=== PATIENT | female | born 1975 | race Caucasian/White ===

== ENCOUNTER → 2018-06-25 12:59 | Outpatient (REF) | payer SELFPAY ==
--- NOTE | 2018-06-25 08:45 | PAPFT_PTH ---
PATIENT: Lady Carlin LOC: [facility] U#:[id number] AGE/SX: 49/F ROOM: RE06/25/[address]: FOX Darling : 1975 BED: DIS: SPEC #: [id number] RECD: 06/25/18 13:05 STATUS: BRIAN REOsmin #: [id number] OSEI: 06/25/18 08:[address]: Jaclyn Martinez DEPT: [facility] Cytology RECD BY: Yulia Ayala Tissues: 1 - CX/ENDOCX FOR PAP SMEARS Procedures: PAP THIN PREP/UVM Screening HPV DNA PROBE Comments: [id number]
== END ==
LOC: LBN 12:59
PROVIDERS: PCP Nurse Practitioner Family; Visit Provider Nurse Practitioner Family
DX: Z12.4 Encounter for screening for malignant neoplasm of cervix (principal); Z11.51 Encounter for screening for human papillomavirus (HPV)
CPT/HCPCS: 88142; 87624

== ENCOUNTER 2018-10-14 00:49 | Outpatient (CLI) | payer MEDICAID, SELFPAY ==
--- NOTE | 2018-10-14 10:13 | DI.COMBO_ITS ---
SYMPTOM/DIAGNOSIS: LT BREAST LUMP, ,N63, FAMILY H/O BREAST CA LEFT MAMMOGRAM AND LEFT BREAST ULTRASOUND: Mammograms were interpreted according to the usual protocol including computer analysis with CAD system, tomosynthesis and C view imaging. Routine images and compression CC and mediolateral spot films of the left breast reveal ill defined radiodensity in the upper outer quadrant of the breast. Analysis of the tomograms suggests the possibility of architectural distortion. No calcifications are identified. At ultrasound, no discrete mass is demonstrated. SUMMARY: A region of abnormality in the upper outer quadrant of the left breast appears to represent architectural distortion. The possibility of a malignancy could not be excluded on the basis of the present images and further evaluation with a biopsy is recommended. Category 4. MQSA ASSESSMENT OF FINDINGS: Suspicious. Biopsy should be considered. Category 4. Patient will receive a letter notifying them of these results. Bi-RADS category C. The breasts are heterogeneously dense, which may obscure small masses.
== END 2018-10-14 01:09 ==
PROVIDERS: PCP Nurse Practitioner Family; Visit Provider Nurse Practitioner Family
DX: N63.21 Unspecified lump in the left breast, upper outer quadrant (principal); Z80.3 Family history of malignant neoplasm of breast
CPT/HCPCS: 76642; 77061; 77065; G0279

== ENCOUNTER 2018-11-14 15:34 | Emergency (ER) | payer MEDICAID, SELFPAY ==
[2018-11-14 15:38] VITALS: BP 133/87; PULSE 78; RESP 16; TEMP 36.5; O2SAT 99
--- NOTE | 2018-11-14 16:32 | ED.GENADUL_ITS ---
Discharge Plan Disposition Patient Disposition: HOME Condition: Stable Discharge Details Chief Complaint: RespSymp Clinical Impression: Influenza A, Cigarette smoker Primary Care Provider: Jaclyn Martinez ED Provider: Jens Silverman Home Meds and New Rx's Prescriptions: New benzonatate 200 mg capsule 200 mg PO TID PRN (Reason: cough) Qty: 30 RF: 0 oseltamivir [Tamiflu] 75 mg capsule 75 mg PO BID 5 Days Qty: 10 RF: 0 No Action triamcinolone acetonide 80 GM ointment 2 - 4 gm Topical BID PRNQty: 1 RF: 2 Discharge Instructions Instructions: Influenza (ED) Additional Instructions: Please take your medication as prescribed and for the full 5 days. Return to the emergency department immediately for any new or significant worsening of symptoms otherwise follow-up with your primary care provider for reassessment. Stay well-hydrated and get plenty of rest during illness Stand Alone Forms: Work Release Referrals: Jaclyn Martinez, [facility] REPA[facility] [Primary Care Provider] - (As needed for reassessment) Medical Decision Making Patient presenting the emergency department for flulike illness. Patient states symptoms started yesterday evening. Physical exam consistent with influenza and rapid testing shows positive influenza. Patient has no signs of secondary pneumonia, meningitis, and does not appear toxic at this time but does show signs of acute illness. Did discuss risk versus benefit of Tamiflu treatment and patient agreed upon treatment plan to include Tamiflu, albuterol inhaler due to slight wheezing, and Tessalon Perles for cough suppressant. Patient encouraged to return for new or worsening signs or symptoms or to follow-up with primary care as needed for reassessment. After discussion of diagnosis and plan of care patient has no further needs, questions, or concerns and states clear understanding to return to the emergency department for any worsening symptoms. HPI General Mode of arrival: ambulatory . Date/Time Provider Initiated Documentation: 11/14/18 15:43 . Limitations to Documentation: no limitations . Information obtained by: patient . History of Present Illness 42 year old F presents to the emergency department with the chief complaint of flu-like symptoms, described as moderate, with intensity rated at 8. Quality is described as constant, and is localized to the face (sinus pressure). Patient started experiencing this day(s) (1) and it has been constant. No relieving factors improve symptom(s), No exacerbating factors reported . Patient did receive the following treatments prior to arrival, NSAID Related Data Home Medications Medication Instructions Recorded Confirmed triamcinolone acetonide 2 - 4 gm TOPICAL BID PRN #1 gm 05/27/18 11/14/18 benzonatate 200 mg PO TID PRN #30 cap 11/14/18 oseltamivir [Tamiflu] 75 mg PO BID 5 Days #10 cap 11/14/18 Previous Rx's Medication Instructions Recorded benzonatate 200 mg PO TID PRN #30 cap 11/14/18 oseltamivir [Tamiflu] 75 mg PO BID 5 Days #10 cap 11/14/18 Allergies Allergy/AdvReac Type Severity Reaction Status Date / Time No Known Drug Allergies Allergy Unverified 11/14/18 15:38 cat dander AdvReac Intermediate itchy Unverified 11/14/18 15:38 watery eyes General Stated Complaint: RespSymp CHERY: 4 Review of Systems Constitutional Reports chills, Reports fatigue, Reports fever(s) and Reports malaise ENT Reports otalgia, Reports hoarseness, Reports nasal congestion, Reports sinus pressure and Reports throat swelling Cardiovascular Denies chest pain and Denies dyspnea Respiratory Denies chest congestion, Reports cough, Denies excessive phlegm production and Denies dyspnea Gastrointestinal Denies abdominal pain, Denies diarrhea, Denies nausea and Denies vomiting Musculoskeletal Reports myalgias and Denies joint swelling Integumentary/Breasts Denies rash Endocrine Reports fatigue Allergic/Immunologic Reports throat swelling [facility] Medical History Atopic dermatitis (Chronic 05/25/18) Bulimia nervosa (Inactive 06/25/18) Bulimia nervosa Depression Surgical History Appendectomy (~2007) Cervical Conization/LEEP section MOLE REMOVAL Tonsillectomy and adenoidectomy (~1996) Family History Mother Essential hypertension Depression Breast cancer Father Diabetes A-fib Sister Psoriasis Sister Substance abuse Alcohol abuse Bipolar disorder Depression Heart disease Grandfather Alcohol abuse Grandfather Stomach cancer Grandmother Emphysema lung COPD (chronic obstructive pulmonary disease) Asthma Grandmother Dementia Son No problems noted. Son No problems noted. Daughter No problems noted. 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 pets and animals: Yes pets and animals: dog(s) and farm animals frequency: does not exercise Smoking/Tobacco Use Status: Current every day tobacco type: cigarettes alcohol intake: current alcohol intake frequency: a few times a week substance use type: does not use omari/shinto: Gnosticist Exam Const General: cooperative, comfortable and no acute distress Orientation: alert, awake and oriented x3 HENMT Head: normal to inspection Ears: hearing grossly normal bilaterally, external ears normal and TM's normal bilaterally Face and sinus: normal facial exam and sinuses nontender Mouth: oral mucosae normal, lip normal and tongue normal Throat: posterior oropharynx normal, tonsils normal and uvula midline Eyes General: appearance normal, both eyes and all related structures Conjunctivae: conjunctivae normal Sclera: sclerae normal Neck Neck: normal visual inspection, full ROM, no lymphadenopathy, meningismus present and no JVD Resp Effort & Inspection: normal respiratory effort, able to speak in complete sentences, no audible wheezes, cough Quality of cough: actively coughing and not labored Auscultation: wheezes expiratory wheezes (Very mild throughout lung garcia) Cardio Rate: regular rate Rhythm: regular rhythm Heart Sounds: S1 normal and S2 normal Skin General skin exam: no rashes or lesions noted and dry skin Rashes: no rashes Neuro General: alert, awake, oriented x3 and gait normal Course Vital Signs Temperature 36.5 C 11/14/18 15:38 Pulse 78 11/14/18 15:38 Respiratory Rate 16 11/14/18 15:38 Blood Pressure 133/87 11/14/18 15:38 Pulse Oximetry 99 11/14/18 15:38 Temperature 36.5 C 11/14/18 15:38 Temperature Source Temporal Artery Scan 11/14/18 15:38 Pulse 78 11/14/18 15:38 Respiratory Rate 16 11/14/18 15:38 Respiratory Effort Non-Labored 11/14/18 15:50 Respiratory Depth Normal 11/14/18 15:50 Blood Pressure 133/87 11/14/18 15:38 Blood Pressure Position Sitting 11/14/18 15:38 Pulse Oximetry 99 11/14/18 15:38 Oxygen Delivery Method Room Air 11/14/18 15:38 Oxygen Flow Rate 0 11/14/18 15:38 Lab/Test Results Lab/Test Results: 11/14/18 15:41 Nasopharynx Influenza Types A,B Antigen - Final
[2018-11-14] MEDS: Albuterol HFA 8 GM 60 PUFF INH IH (16:45)
[2018-11-14] MEDS: Inhaler, Assist Device 1 EACH MC (16:46)
== END 2018-11-14 16:55 | disposition home or self-care (01) ==
PROVIDERS: Emergency Provider Nurse Practitioner Family; PCP Nurse Practitioner Family
DX: J10.1 Influenza due to other identified influenza virus with other respiratory manifestations (principal); F17.210 Nicotine dependence, cigarettes, uncomplicated
CPT/HCPCS: 81025; 87449; 99283

== ENCOUNTER 2018-12-23 15:20 | Outpatient (CLI) | payer MEDICAID, SELFPAY ==
[2018-12-23 16:23] LABS: Anion Gap 9.3 mmol/L (3-11); BUN 10 mg/dL (7-18); CO2 27.7 mmol/L (21.0-32.0); CREATININE 0.96 mg/dL (0.55-1.02); Calcium 8.6 mg/dL (8.5-10.1); Chloride 104 mmol/L (98-107); Cholesterol 155 mg/dL (50-200); Glucose 91 mg/dL (70-100); HDL Cholesterol 64 mg/dL (40-60); LDL CHOLESTEROL 67 mg/dL (<100); Sodium 141 mmol/L (136-145); Triglyceride 133 mg/dL (30-150)
== END 2018-12-23 15:40 ==
PROVIDERS: PCP Nurse Practitioner Family; Visit Provider Nurse Practitioner Family
DX: Z00.00 Encounter for general adult medical examination without abnormal findings (principal); Z13.220 Encounter for screening for lipoid disorders; Z13.228 Encounter for screening for other metabolic disorders
CPT/HCPCS: 36415; 80048; 80061; 83721

== ENCOUNTER 2018-12-25 00:28 | Outpatient (CLI) | payer MEDICAID, SELFPAY ==
--- NOTE | 2018-12-25 09:45 | DI.MRI_ITS ---
SYMPTOM/DIAGNOSIS: RT SHOULDER PAIN WITH DECREASE RANGE OF MOTION, INJURY, S49.91XA RIGHT SHOULDER MRI: No plain films are available for comparison. Proton density and fat suppressed T 2 axial and coronal and T 1 and fat suppressed T 2 sagittal sequences were performed. A small amount of fluid is seen in the subacromial subdeltoid bursa which could indicate bursitis. There may be slight impingement by the distal clavicle and the distal supraspinatus muscle. There is minimal increased signal in the supraspinatus tendon, consistent with tendinosis. No focal tear is seen. The infraspinatus, subscapular, teres minor and biceps tendons are unremarkable. There is no joint effusion. There is a minimal amount of fluid in the subcoracoid region. There are small subchondral cysts in the humeral head. No gross labral defects are seen. IMPRESSION: Supraspinatus tendinosis. Question of mild supraspinatus impingement and bursitis.
== END 2018-12-25 00:48 ==
PROVIDERS: PCP Nurse Practitioner Family; Visit Provider Nurse Practitioner Family
DX: M25.511 Pain in right shoulder (principal); M75.81 Other shoulder lesions, right shoulder; M25.811 Other specified joint disorders, right shoulder
CPT/HCPCS: 73221

== ENCOUNTER 2019-06-09 11:35 | Emergency (ER) | payer MEDICAID, SELFPAY ==
[2019-06-09 11:52] VITALS: BP 124/79; PULSE 72; RESP 14; TEMP 36.9; O2SAT 98
--- NOTE | 2019-06-09 12:05 | ED.GENADUL_ITS ---
Discharge Plan Disposition Patient Disposition: HOME Condition: Fair Discharge Details Chief Complaint: Orthopedic Clinical Impression: Closed fracture of tuft of distal phalanx of finger Primary Care Provider: Jaclyn Martinez ED Provider: Darleen Arce Home Meds and New Rx's Prescriptions: Continued triamcinolone acetonide 80 GM ointment 2 - 4 gm Topical BID PRNQty: 1 RF: 2 Discharge Instructions Instructions: Finger Fracture (ED) Additional Instructions: Encourage rest, ice, elevation. Tylenol and/or Ibuprofen as needed for discomfort. You will need follow up with orthopedics, please call to schedule appointment. If you develop fevers/chills, increased pain, or other new/worsening symptoms please seek care urgently once again. Continue with brace until evaluated by orthopedics. Referrals: Alhaji Villela MD [ [facility] STAFF PHYSICIAN] - Discharge Data Discharge Date/Time-TO BE ENTERED AT DEPARTURE: 06/09/19 12:37 Medical Decision Making Patient is a 43-year-old luzdo-crqb-nyzvomrr female presents today with chief complaint of pain to the left index finger. She reports that she suffered a crush injury yesterday. Since that time is noted increased pain, swelling and ecchymosis. On exam, she has notable swelling and ecchymosis circumferentially about the left index finger. This is worse over the DIP and distal phalanx. She does have a thick nail on. I do not see any opening of the skin. Does have blood blistering on the palmar side of the digit. Good capillary refill. Sensation remains intact. Plan for imaging. Patient declines any analgesics at this time. X-ray reviewed by myself and radiologist, notable for fracture at the top of the distal phalanx. Discussed these findings with the patient. Encourage rest, ice, elevation. Tylenol and/or ibuprofen as needed for discomfort. Patient will be fitted with a foam and metal splint, will follow-up with orthopedics. We discussed activities that she should avoid. She is given strict return precautions. All her questions and concerns were addressed and she is in agreement with this plan. HPI General Mode of arrival: ambulatory . Date/Time Provider Initiated Documentation: 06/09/19 12:04 . Limitations to Documentation: no limitations . Information obtained by: patient and RN notes reviewed . HPI Narrative: Patient is a 43-year-old [id number]-fyraihss female presenting today with chief complaint of right index finger pain. She reports that last night, while using a wood splinter, she caught her finger between the wood in the abutting his equipment. States that since that time she has had swelling, particular to the distal aspect of the finger. Has been using ibuprofen with good relief. Denies any fevers or chills. Denies other injury the time of the incident. Patient is currently menstruating. Related Data Home Medications Medication Instructions Recorded Confirmed triamcinolone acetonide 2 - 4 gm TOPICAL BID PRN #1 gm 05/27/18 06/09/19 Allergies Allergy/AdvReac Type Severity Reaction Status Date / Time No Known Drug Allergies Allergy Verified 06/09/19 12:02 cat dander AdvReac Intermediate itchy Verified 06/09/19 12:02 watery eyes General Stated Complaint: Orthopedic CHERY: 4 Review of Systems Constitutional Reports as per HPI, Denies chills, Denies fever(s), Denies headache(s) and Denies weakness ENT Denies headache(s) Cardiovascular Reports as per HPI Respiratory Reports as per HPI and Denies cough Musculoskeletal Reports as per HPI and Denies tingling Integumentary/Breasts Reports as per HPI, Denies rash and Denies wounds Neurologic Reports as per HPI, Denies headache(s), Denies tingling, Denies paresthesias and Denies weakness [facility] Medical History Atopic dermatitis (Chronic 05/25/18) Bulimia nervosa Bulimia nervosa (Inactive 06/25/18) Depression Surgical History Appendectomy (~2007) Cervical Conization/LEEP section MOLE REMOVAL Tonsillectomy and adenoidectomy (~1996) Social History Smoking/Tobacco Use Status: Current every day Tobacco Type: cigarettes Alcohol Intake: current Alcohol Intake frequency: a few times a week Drug use: Never Substance use type: does not use Household members: other Details: 5 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 Pets and animals: Yes Pets and animals: dog(s) and farm animals Frequency: does not exercise Leyla/Presybeterian: Restorationism Do you feel safe at home: Yes Do you feel safe in your relationship?: Yes Exam Const General: cooperative, healthy appearing, comfortable, no acute distress, well developed and well groomed Nutritional Appearance: average body habitus and well nourished Orientation: alert and awake Resp Effort & Inspection: normal respiratory effort, able to speak in complete sentences and no respiratory distress Cardio Rate: regular rate Rhythm: regular rhythm Skin General skin exam: ecchymosis (Circumferential left index finger) Neuro General: alert and awake Cognition: normal cognition Speech: speech normal Gait: normal gait Motor: muscle tone normal throughout Sensory Exam: no sensory deficits noted Extrem Left upper extremity: normal capillary refill, wrist Details: normal to ins pection and normal ROM; no tenderness and no swelling and hand Details: normal capillary refill, neuromotor exam normal, neurosensory exam normal, tenderness Location: of the 2nd digit Location: at the middle phalanx, at the distal phalanx, at the nailbed and involving the fingernail, vascular exam Details: radial pulse present and normal capillary refill, swelling Location: of the 2nd digit Location: involving the entire digit and ecchymosis; abnormal to inspection, tendon exam abnormal (Secondary to swelling and pain, this is unable to be assessed), ROM of fingers abnormal, no unusual warmth, no abrasions, no lacerations and no crepitus; abnormal to inspection (Circumferential swelling and ecchymosis index finger) and ROM limited (Unable to range left index finger) Psych Appearance: grossly normal and well kempt Mental Status: mental status grossly normal Speech and Movement: speech and movement normal Course Vital Signs Temperature 36.9 C 06/09/19 11:52 Pulse 72 06/09/19 11:52 Respiratory Rate 06/09/19 11:52 Blood Pressure 124/79 06/09/19 11:52 Pulse Oximetry 98 06/09/19 11:52 Temperature 36.9 C 06/09/19 11:52 Temperature Source Skin 06/09/19 11:52 Pulse 72 06/09/19 11:52 Respiratory Rate 06/09/19 11:52 Respiratory Effort 06/09/19 12:00 Blood Pressure 124/79 06/09/19 11:52 Blood Pressure Position Sitting 06/09/19 11:52 Pulse Oximetry 98 06/09/19 11:52 Oxygen Delivery Method Room Air 06/09/19 11:52 Oxygen Flow Rate 0 06/09/19 11:52 Pain Level 10 06/09/19 11:59
--- NOTE | 2019-06-09 12:09 | DI.RAD_ITS ---
SYMPTOMS/DIAGNOSIS: CRUSH LEFT INDEX FINGER: There is a small fragment fracture from the tuft of the distal phalanx, which is not significantly displaced. No additional fractures are seen. IMPRESSION: Fracture of the tuft of the distal phalanx.
== END 2019-06-09 12:37 | disposition home or self-care (01) ==
PROVIDERS: Emergency Provider Physician Assistant; PCP Nurse Practitioner Family
DX: S67.191A Crushing injury of left index finger, initial encounter (principal); S62.631A Displaced fracture of distal phalanx of left index finger, initial encounter for closed fracture; W23.0XXA Caught, crushed, jammed, or pinched between moving objects, initial encounter; W31.2XXA Contact with powered woodworking and forming machines, initial encounter
CPT/HCPCS: 26750; 73140

== ENCOUNTER 2020-05-22 14:45 | Emergency (ER) | payer MEDICAID, SELFPAY ==
[2020-05-22 14:56] VITALS: BP 136/88; PULSE 88; RESP 22; TEMP 37.1; O2SAT 97
--- NOTE | 2020-05-22 15:00 | DI.RAD_ITS ---
EXAM: XR FINGER LT INDEX CLINICAL HISTORY: Crush injury. TECHNIQUE: 2D digital imaging was performed. COMPARISON: None. FINDINGS: There is a nondisplaced fracture at the tuft of the distal phalanx of the index finger. There is sof t tissue swelling of the index finger. There is no foreign body or dislocation. IMPRESSION: Nondisplaced tuft fracture. DATA REPOSITORY: RADIATION DOSE DELIVERED:
--- NOTE | 2020-05-22 15:56 | ED.GENADUL_ITS ---
Discharge Plan Disposition Patient Disposition: HOME Condition: Good Discharge Details Chief Complaint: Orthopedic Clinical Impression: Fracture of distal phalanx of left index finger, Crush injury, Laceration Primary Care Provider: Jaclyn Martinez ED Provider: Darleen Arce Home Meds and New Rx's Prescriptions: New cephalexin [Keflex] 500 mg capsule 500 mg PO QID Qty: 20 RF: 0 Continued hydroxyzine HCl 25 mg tablet 25 mg PO TID Qty: 30 RF: 0 doxycycline hyclate 100 mg tablet 100 mg PO DAILY Qty: 60 RF: 0 Discharge Instructions Instructions: Laceration (ED), Finger Fracture (ED) Additional Instructions: Keep wound clean, dry, covered. Tylenol and/or ibuprofen as needed for discomfort. Keep current dressing on until tomorrow. After that time, please change, cover with dressing in place splint. You will need follow-up with orthopedics. Please call tomorrow morning to schedule appointment, number listed below. Please take the antibiotics as prescribed. If you develop fever/chills, increased pain, discharge or other new/worsening symptoms please seek care urgently once again Referrals: Jaclyn Martinez NP [Primary Care Provider] - Alhaji Villela MD [ [facility] STAFF PHYSICIAN] - Discharge Data Discharge Date/Time-TO BE ENTERED AT DEPARTURE: 05/22/20 17:36 Medical Decision Making Patient is a 44-year-old female presenting today with chief complaint of left index finger crush injury. She reports that this happened prior to arrival when she was using a wood splitter. She has endorsing tingling. Notes large amount of swelling. Denies other injury the time the incident. Rates the pain an 8 out of 10. X-ray viewed by radiologist: FINDINGS: There is a nondisplaced fracture at the tuft of the distal phalanx of the index finger. There is soft tissue swelling of the index finger. There is no foreign body or dislocation. IMPRESSION: Nondisplaced tuft fracture. On exam, patient appears uncomfortable. She has circumferential swelling of the entire digit. She does have some ecchymosis along the palmar side. Y-shaped laceration totaling 3 cm over the flexor surface of the DIP joint. Brisk capillary refill. Sensation is intact on the radial side, limited on the ulnar side. Nail appears normal. She has intact ligamentous exam. Exam of the MCP and PIP joints are in tact without abnormality. She also has a small area of superficial skin displacement on the dorsal side of the DIP joint. Patient is actively bleeding. She and I discussed risk/benefits as well as expected procedural steps associated with digital block and closure. She was understan ding wished to proceed. Please see procedure note. Patient tolerated procedure well. This was per formed using standard sterile technique. A tourniquet was used for visualization. Wound is explored to base in a bloodless field. No foreign body or debris was noted. Ligament and bone appear intact and the area able to be visualized. Wound edges reapproximated well and #4 simple interrupted stitches were placed. Patient I discussed wound care in depth. We discussed care of the stitches. She will follow-up with orthopedics regarding the distal tuft fracture. As this is potentially an open fracture, will begin the patient on Keflex. She is given her first dosing here. Give Tylenol and ibuprofen. Encourage rest, ice, elevation. Should continue with Tylenol and/or ibuprofen as needed for discomfort. Return precautions were discussed, particular signs of infection. All of her questions and concerns were addressed she is agreement this plan. HPI General Mode of arrival: ambulatory . Date/Time Provider Initiated Documentation: 05/22/20 14:58 . Limitations to Documentation: no limitations . Information obtained by: patient and RN notes reviewed . History of Present Illness 44 year old F presents to the emergency department with the chief complaint of crush injury left index finger, described as severe, with intensity rated at 8. Quality is described as crushing, and is localized to the left and upper extremity. Patient reports no radiation. Patient started experiencing this minute(s) and it has been constant. Immobilization improves symptom(s), Movement worsens symptoms . Patient notes no other symptoms.. Patient did receive the following treatments prior to arrival, none Related Data Home Medications Medication Instructions Recorded Confirmed hydroxyzine HCl 25 mg tablet 25 mg PO TID #30 tab 07/06/19 05/22/20 doxycycline hyclate 100 mg tablet 100 mg PO DAILY #60 tab 07/30/19 05/22/20 cephalexin [Keflex] 500 mg PO QID #20 cap 05/22/20 Previous Rx's Medication Instructions Recorded hydroxyzine HCl 25 mg tablet 25 mg PO TID #30 tab 07/06/19 doxycycline hyclate 100 mg tablet 100 mg PO DAILY #60 tab 07/30/19 cephalexin [Keflex] 500 mg PO QID #20 cap 05/22/20 Allergies Allergy/AdvReac Type Severity Reaction Status Date / Time doxycycline Allergy Intermediate hives Unverified 05/22/20 15:03 cat dander AdvReac Intermediate itchy Verified 05/22/20 15:03 watery eyes General Stated Complaint: Orthopedic CHERY: 3 Review of Systems Constitutional Constitutional: Reports as per HPI, Denies chills, Denies fever(s), Denies h eadache(s) and Denies weakness ENT Ears, Nose, Mouth, and Throat: Denies headache(s) Cardiovascular Cardiovascular: Reports as per HPI Respiratory Respiratory: Reports as per HPI and Denies cough Musculoskeletal Musculoskeletal: Reports as per HPI and Reports tingling Integumentary/Breasts Skin/Breast: Reports as per HPI and Reports wounds Neurologic Neurologic: Reports as per HPI, Denies headache(s), Reports tingling and Denies weakness [facility] Surgical History H/O section (Chronic ~2001) x 2 S/P appendectomy (Acute ~2007) S/P LEEP of cervix (Acute ~1997) S/P tonsillectomy and adenoidectomy (Acute) Social History Smoking/Tobacco Use Status: Current every day Tobacco Type: cigarettes Tobacco: How many years used: 15 Quit status: considering quitting Second Hand Exposure: No Alcohol Intake: current Alcohol Intake frequency: 0-2 drinks per day Alcohol type: beer Drug use: Never Substance use type: does not use Caregiver/Support person: No Household members: significant other and children Communication Needs: None Do you need help understanding health information?: Never 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 Pets and animals: Yes Pets and animals: dog(s) and farm animals Sexually active: Yes Do you think of yourself as: straight/heterosexual Current gender identity: female What is your relationship status?: living with partner How often do you talk on the phone with friends or family?: three or more times per week How often do you get together with friends or relatives?: once per week How often do you attend confucianist or congregational services?: decline to answer Do you belong to any clubs or organized social groups?: no Panel score (0-1 are the most socially isolated patients): 2 What type of physical activity do you participate in: other Details: Gym Duration: 45-60 minutes/day Frequency: decline to answer Leyla/Confucianist: Denominational Special leyla needs: No Seatbelt use: always Helmet use: Yes Helmet use: always Drive intox or ride w/intox otr flatbed company truck driver: No Do you feel safe at home: Yes Do you feel safe in your relationship?: Yes Female Reproductive History Menstrual control method: natural family planning History History 4 Para 3 Hx # Term Pregnancies Multiple births Hx # Pregnancies Ectopic pregnancies AB induced 1 Hx Number of Living Children 3 AB spontaneous Exam Const General: cooperative, healthy appearing, uncomfortable (patient appears uncomfo rtable), no acute distress, well developed and well groomed Nutritional Appearance: average body habitus and well nourished Orientation: alert and awake Resp Effort & Inspection: normal respiratory effort, able to speak in complete sentences and no respiratory distress Cardio Rate: regular rate Rhythm: regular rhythm Skin Trauma: laceration (as below) Neuro General: patient alert and patient awake Cognition: normal cognition Speech: speech normal Gait: normal gait Motor: muscle tone normal throughout Sensory Exam: no sensory deficits noted Extrem Hand/finger images: 1. Irregularly shaped Y laceration. Sensation intact along the radial side, limited on the ulnar side. Brisk capillary refill. flexion and extension intact against resistance. Dorsal side has superifical lifting off of skin, similar appearance to a ruptured blister with no deep involvement or laceration. Entire finger is swollen circumfrencially. ROM limited secondary to swelling but able to flex/extend at MCP, DIP and PIP Psych Appearance: grossly normal and well kempt Mental Status: mental status grossly normal Speech and Movement: speech and movement normal Course Vital Signs Vital signs: Vital Signs Temperature 37.1 C 05/22/20 14:56 Pulse 88 05/22/20 14:56 Respiratory Rate 22 05/22/20 14:56 Blood Pressure 136/88 05/22/20 14:56 Pulse Oximetry 97 05/22/20 14:56 Temperature 37.1 C 05/22/20 14:56 Temperature Source Temporal Artery Scan 05/22/20 14:56 Pulse 88 05/22/20 14:56 Respiratory Rate 22 05/22/20 14:56 Respiratory Effort 05/22/20 14:59 Blood Pressure 136/88 05/22/20 14:56 Pulse Oximetry 97 05/22/20 14:56 Oxygen Delivery Method Room Air 05/22/20 14:56 Oxygen Flow Rate 0 05/22/20 14:56 Pain Level 8 05/22/20 14:56 Procedures Laceration Laceration 1: Site: hand Side (If applicable): left Size (cm): 3 Description: irregular Depth: simple, single layer Local Anesthetic: Lidocaine 1% Amount of anesthesia used (mL): 5 Pre-repair: wound explored, irrigated extensively, deep structures intact and wound margins revised Skin layer closed with: nylon Size (cm): 5-0 Number of sutures: 4
[2020-05-22] MEDS: Cephalexin 500 MG CAP PO ×2 (16:56)
[2020-05-22] MEDS: Ibuprofen 600 MG TAB PO (16:56)
[2020-05-22] MEDS: Acetaminophen 500 MG TAB 1000 MG PO (16:56)
[2020-05-22 16:58] VITALS: BP 123/73; PULSE 72; RESP 20; TEMP 36.1; O2SAT 98
== END 2020-05-22 17:36 | disposition home or self-care (01) ==
PROVIDERS: Emergency Provider Physician Assistant; PCP Nurse Practitioner Family
DX: S67.191A Crushing injury of left index finger, initial encounter (principal); S62.661B Nondisplaced fracture of distal phalanx of left index finger, initial encounter for open fracture; W23.1XXA Caught, crushed, jammed, or pinched between stationary objects, initial encounter
CPT/HCPCS: 12002; 26750; 73140

== ENCOUNTER 2020-05-29 13:38 | Emergency (ER) | payer MEDICAID, SELFPAY ==
[2020-05-29 13:43] VITALS: BP 119/91; PULSE 79; RESP 16; TEMP 36.7; O2SAT 98
--- NOTE | 2020-05-29 13:52 | ED.GENADUL_ITS ---
Discharge Plan Disposition Patient Disposition: HOME Condition: Stable Discharge Details Chief Complaint: SutureRem Clinical Impression: Visit for suture removal Primary Care Provider: Jaclyn Martinez ED Provider: Rachel Quintanilla Home Meds and New Rx's Prescriptions: No Action No Known Home Meds RF: 0 Discharge Instructions Instructions: Stitches Removal (ED) Additional Instructions: Keep wound clean and dry. Cover wound with bandage if risk of contamination. Otherwise you can keep the wound open to air if resting at home to allow edges to dry and heal. Follow up with your primary care doctor in 1 week as needed. Return to the emergency department with any worsening or new concerning symptoms. Discharge Data Discharge Physician: Rachel Quintanilla Medical Decision Making 44-year-old female presents for suture removal after 4 nylon sutures placed 1 week ago. No signs of cellulitis. There is minimal edema which is restricting full flexion otherwise no focal deficits noted. She is neurovascular intact. 4 sutures removed by nurse and Steri-Strip placed at 1 area which appeared slightly open and then covered with bandage. Patient has a follow-up appointment with Dr. Villela next week. Usual and customary return precautions given prior to discharge. HPI General Mode of arrival: ambulatory . Date/Time Provider Initiated Documentation: 05/29/20 13:46 . Limitations to Documentation: no limitations . Information obtained by: patient . HPI Narrative: Patient is a 44-year-old female presents for suture removal of her left second finger after 4 nylon sutures placed 1 week ago. She also sustained a finger fracture at that time. She finished taking the Keflex. She denies any fever. She does admit to still having some swelling in the finger which limits her range of motion but otherwise denies any acute symptoms. Related Data Home Medications Medication Instructions Recorded Confirmed Unknown [No Known Home Meds] 05/29/20 05/29/20 Allergies Allergy/AdvReac Type Severity Reaction Status Date / Time doxycycline Allergy Intermediate hives Unverified 05/29/20 13:48 shrimp Allergy Skin Rash Unverified 05/29/20 13:52 cat dander AdvReac Intermediate itchy Verified 05/29/20 13:48 watery eyes General Stated Complaint: SutureRem CHERY: 5 Review of Systems All systems reviewed & are unremarkable except as noted in HPI and below [facility] Medical History (Updated 05/29/20 @ 13:53 by Rachel Quintanilla, ) Atopic dermatitis (Chronic) Bulimia nervosa (Inactive) Cigarette smoker (Chronic) Depressive disorder (Inactive) Surgical History H/O section (Chronic ~2001) x 2 S/P appendectomy (Acute ~2007) S/P LEEP of cervix (Acute ~1997) S/P tonsillectomy and adenoidectomy (Acute) Family History Mother Depression Breast cancer Hypertension Father Type 2 diabetes mellitus Atrial fibrillation Sister Psoriasis Alcohol abuse Asthma Substance abuse Sister Type 2 diabetes mellitus Son No problems noted. Son No problems noted. Daughter No problems noted. Maternal Grandfather Alcohol abuse Maternal Grandmother Asthma COPD (chronic obstructive pulmonary disease) Paternal Grandfather Stomach cancer Paternal Grandmother Dementia Social History Smoking/Tobacco Use Status: Current every day Tobacco Type: cigarettes Tobacco: How many years used: 15 Quit status: considering quitting Second Hand Exposure: No Alcohol Intake: current Alcohol Intake frequency: 0-2 drinks per day Alcohol type: beer Drug use: Never Substance use type: does not use Caregiver/Support person: No Household members: significant other and children Communication Needs: None Do you need help understanding health information?: Never 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 Pets and animals: Yes Pets and animals: dog(s) and farm animals Sexually active: Yes Do you think of yourself as: straight/heterosexual Current gender identity: female What is your relationship status?: living with partner How often do you talk on the phone with friends or family?: three or more times per week How often do you get together with friends or relatives?: once per week How often do you attend yazidism or gnosticist services?: decline to answer Do you belong to any clubs or organized social groups?: no Panel score (0-1 are the most socially isolated patients): 2 What type of physical activity do you participate in: other Details: Gym Duration: 45-60 minutes/day Frequency: decline to answer Leyla/Amish: Episcopalian Special leyla needs: No Seatbelt use: always Helmet use: Yes Helmet use: always Drive intox or ride w/intox cpr ambulance driver: No Do you feel safe at home: Yes Do you feel safe in your relationship?: Yes Female Reproductive History Menstrual control method: natural family planning History History 4 Para 3 Hx # Term Pregnancies Multiple births Hx # Pregnancies Ectopic pregnancies AB induced 1 Hx Number of Living Children 3 AB spontaneous Exam Const General: cooperative, healthy appearing and no acute distress HENMT Head: normal to inspection Mouth: oral mucosae normal Eyes General: appearance normal, both eyes and all related structures Neck Neck: normal visual inspection Resp Effort & Inspection: normal respiratory effort and able to speak in complete se ntences Cardio Rate: regular rate Skin General skin exam: no rashes or lesions noted Neuro General: patient alert, patient awake and patient oriented x3 Motor: muscle tone normal throughout Other: Normal muscle strength noted to left second finger. There is some limitation of full flexion due to edema of distal left second finger. Extrem Hand/finger images: 1. [address] noted in place at wound site. Minimal edema noted around distal finger and wound site. There is no erythema, ecchymosis, drainage or bleeding. Psych Appearance: grossly normal Affect: normal affect Course Vital Signs Vital signs: Vital Signs Temperature 98.1 F 05/29/20 13:43 Pulse 79 05/29/20 13:43 Respiratory Rate 16 05/29/20 13:43 Blood Pressure 119/91 H 05/29/20 13:43 Pulse Oximetry 98 05/29/20 13:43 Temperature 98.1 F 05/29/20 13:43 Temperature Source Tympanic 05/29/20 13:43 Pulse 79 05/29/20 13:43 Respiratory Rate 16 05/29/20 13:43 Blood Pressure 119/91 H 05/29/20 13:43 Blood Pressure Position Sitting 05/29/20 13:43 Pulse Oximetry 98 05/29/20 13:43 Oxygen Delivery Method Room Air 05/29/20 13:43 Oxygen Flow Rate 0 05/29/20 13:43
== END 2020-05-29 14:05 | disposition home or self-care (01) ==
PROVIDERS: Emergency Provider Physician Assistant; PCP Nurse Practitioner Family
DX: S62.661D Nondisplaced fracture of distal phalanx of left index finger, subsequent encounter for fracture with routine healing (principal); W23.1XXD Caught, crushed, jammed, or pinched between stationary objects, subsequent encounter; Z48.02 Encounter for removal of sutures

== ENCOUNTER 2020-11-15 04:20 | Outpatient (CLI) | payer MEDICAID, SELFPAY ==
[2020-11-15 11:30] LABS: HCT 44.6 % (36.0-46.0); HGB 14.5 g/dL (11.2-15.7); MCH 31.7 pg (27.0-33.0); MCHC 32.5 % (32.0-36.0); MCV 97.6 fL (80-95); MPV 8.9 fL (8.0-11.0); Platelet Count 311 10^3/uL (130-400); RBC 4.57 10^6/uL (3.93-5.22); RDW 11.9 % (11.7-14.6); RDW-SD 42.6 fL; WBC 8.38 10^3/uL (4.4-10.8)
[2020-11-15 12:05] LABS: ESR 6 mm/hr (0-20)
[2020-11-15 12:39] LABS: ALT 18 U/L (14-59); AST 15 U/L (15-37); Albumin 3.8 g/dL (3.4-5.0); Alkaline Phosphatase 51 U/L (46-116); Anion Gap 7.6 mmol/L (3-11); BUN 10 mg/dL (7-18); Bilirubin, Total 0.5 mg/dL (0.2-1.0); CO2 26.4 mmol/L (21.0-32.0); CREATININE 1.05 mg/dL (0.55-1.02); Calcium 9.1 mg/dL (8.5-10.1); Chloride 104 mmol/L (98-107); Estimated GFR 57.47 (mL/min/1.73m2); Glucose 88 mg/dL (74-106); Potassium 4.1 mmol/L (3.5-5.1); Sodium 138 mmol/L (136-145)
[2020-11-15 12:40] LABS: C-Reactive Protein < 0.05 mg/dL (0.0-0.3)
== END 2020-11-15 04:40 ==
PROVIDERS: PCP Nurse Practitioner Family; Visit Provider Nurse Practitioner Family
DX: M25.511 Pain in right shoulder (principal); M25.512 Pain in left shoulder
CPT/HCPCS: 36415; 80053; 85027; 85652; 86140

== ENCOUNTER 2021-01-31 20:18 | Emergency (ER) | payer MEDICAID, SELFPAY ==
[2021-01-31 20:20] VITALS: BP 115/74; PULSE 91; RESP 16; TEMP 36.7; O2SAT 96
--- NOTE | 2021-01-31 22:05 | ED.GENADUL_ITS ---
Discharge Plan Disposition Patient Disposition: HOME Condition: Improving Discharge Details Clinical Impression: Acute effusion of right ear, TMJ click Primary Care Provider: Jaclyn Martinez ED Provider: Alhaji Rendon Home Meds and New Rx's Prescriptions: New prednisone 50 mg tablet 50 mg PO DAILY 5 Days Qty: 5 RF: 0 loratadine [Allerclear] 10 mg tablet 10 mg PO DAILY Qty: 7 RF: 0 Continued albuterol sulfate [Proventil HFA] 90 mcg/actuation HFA aerosol inhaler 2 puff inhalation Q6H PRN (Reason: shortness of breath or wheezing) Qty: 6.7 RF: 0 hydroxyzine HCl 25 mg tablet 25 mg PO Q6H PRN (Reason: itching) Qty: 60 RF: 0 triamcinolone acetonide 0.1 % cream 1 applic TP BID PRN (Reason: atopic dermatitis) Qty: 80 RF: 1 Discharge Instructions Instructions: Ear Infection (ED) Additional Instructions: Home to rest today. Take prednisone as prescribed. Please take Claritin for 7 days as prescribed. Return if you develop a fever, increasing discomfort, or any other acute concerns. As we discussed, you may have TMJ (temporal mandibular joint) irritation or mild arthralgia. If your symptoms do not improve with the burst of prednisone, please follow-up with your regular doctor for recheck. Medical Decision Making 45-year-old female presents with right ear pain over weeks time, sensation of fullness, and clicking of the right jaw as well as ear. Its worse when lying on that side. She is not had a fever. No change to voice. Denies stress or teeth grinding. Vital signs are unremarkable. She is afebrile. Her exam reveals both right TMJ tenderness as well as right middle ear effusion. Discussed with her that this may be TMJ pain, but also others significant consideration of aggressively treating the middle ear effusion to eliminate this as a source of her discomfort. I do not feel she has signs or symptoms of sinusitis. No evidence of dental infection. We will start the patient on a burst of prednisone. She will take Claritin for 1 week. She understands that she may have persistent TMJ discomfort that will need further follow-up. HPI General Mode of arrival: ambulatory . Date/Time Provider Initiated Documentation: 01/31/21 20:33 . Limitations to Documentation: no limitations . Information obtained by: patient . History of Present Illness 45 year old F presents to the emergency department with the chief complaint of Right ear fullness and jaw pain, described as mild, Quality is described as dull, and is localized to the head, face and right. Patient reports no radiation. Patient started experiencing this day(s) and it has been intermittent. No relieving factors improve symptom(s), No exacerbating factors reported . Patient notes denies cough, fever/chills, headaches and nausea/vomiting. Patient did receive the following treatments prior to arrival, none Related Data Home Medications Medication Instructions Recorded Confirmed hydroxyzine HCl 25 mg tablet 25 mg PO Q6H PRN #60 tab 07/07/20 11/13/20 albuterol sulfate 90 mcg/actuation 2 puff INHALATION Q6H PRN #6.7 g 07/21/20 11/13/20 aerosol inhaler triamcinolone acetonide 0.1 % 1 applic TP BID PRN #80 gm 11/10/20 11/13/20 topical cream loratadine [Allerclear] 10 mg PO DAILY #7 tab 01/31/21 prednisone 50 mg PO DAILY 5 Days #5 tab 01/31/21 Previous Rx's Medication Instructions Recorded hydroxyzine HCl 25 mg tablet 25 mg PO Q6H PRN #60 tab 07/07/20 albuterol sulfate 90 mcg/actuation 2 puff INHALATION Q6H PRN #6.7 g 07/21/20 aerosol inhaler triamcinolone acetonide 0.1 % 1 applic TP BID PRN #80 gm 11/10/20 topical cream loratadine [Allerclear] 10 mg PO DAILY #7 tab 01/31/21 prednisone 50 mg PO DAILY 5 Days #5 tab 01/31/21 Allergies Allergy/AdvReac Type Severity Reaction Status Date / Time doxycycline Allergy Intermediate hives Unverified 11/13/20 12:02 shrimp Allergy Skin Rash Unverified 11/13/20 12:02 cat dander AdvReac Intermediate itchy Verified 11/13/20 12:02 watery eyes General Stated Complaint: FacialProb CHERY: 4 Review of Systems Narrative: No swelling, no fever, no drooling, no change to voice. No sore throat. 6 systems reviewed and otherwise negative [facility] Medical History (Updated 01/31/21 @ 22:11 by Alhaji Rendon MD) Atopic dermatitis Bulimia nervosa Cigarette smoker Depressive disorder Surgical History H/O section (~2001) x 2 S/P appendectomy (~2007) S/P LEEP of cervix (~1997) S/P tonsillectomy and adenoidectomy Family History Mother Depression Breast cancer Hypertension Father Type 2 diabetes mellitus Atrial fibrillation Sister Psoriasis Alcohol abuse Asthma Substance abuse Rheumatoid arthritis Sister Type 2 diabetes mellitus Rheumatoid arthritis Son No problems noted. Son No problems noted. Daughter No problems noted. Maternal Grandfather Alcohol abuse Maternal Grandmother Asthma COPD (chronic obstructive pulmonary disease) Paternal Grandfather Stomach cancer Paternal Grandmother Dementia Social History Smoking/Tobacco Use Status: Current every day (On/off 20 years) Tobacco Type: cigarettes Tobacco: How many years used: 20 Quit status: considering quitting Second Hand Exposure: No Smoking risk assessment performed?: Yes Alcohol Intake: current Alcohol Intake frequency: a few times a week Alcohol type: beer Drug use: Never Caregiver/Support person: No Household members: spouse Housing: house Communication Needs: None Do you need help understanding health information?: Never 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 Pets and animals: Yes Pets and animals: dog(s), ferret(s) and farm animals Sexually active: Yes Do you think of yourself as: straight/heterosexual Current gender identity: female What is your relationship status?: living with partner How often do you talk on the phone with friends or family?: once per week How often do you get together with friends or relatives?: once per week How often do you attend temple or jainism services?: 1-3 times per year Do you belong to any clubs or organized social groups?: no Panel score (0-1 are the most socially isolated patients): 1 What type of physical activity do you participate in: other Details: Gym Duration: 15-30 minutes/day Frequency: 3-4 times per week Leyla/Presybeterian: Roman Catholic Special leyla needs: No Seatbelt use: always Helmet use: Yes Helmet use: always Drive intox or ride w/intox otr flatbed company truck driver: No Do you feel safe at home: Yes Do you feel safe in your relationship?: Yes Female Reproductive History Menstrual control method: natural family planning History History 4 Para 3 Hx # Term Pregnancies Multiple births Hx # Pregnancies Ectopic pregnancies AB induced 1 Hx Number of Living Children 3 AB spontaneous Exam Narrative Exam Narrative: GEN: awake, alert, oriented 3. Pleasant, well groomed, interactive. HEAD: Normocephalic, atraumatic ENT: Mucous membranes moist, oropharynx unremarkable, right tympanic membrane slightly distended, fluid-filled, no erythema, external ear exam unremarkable. Tenderness right TMJ with movement. EYES: PERRL, EOMI NECK: Full ROM, no KATIANA, no menigismus CHEST/RESP: Nontender, clear to auscultation bilateral, no wheeze/rhonchi/rales CARDIOVASCULAR: RRR, no murmur, rub heidi. 2+ Rad pulse bilateral EXT: Full ROM, no edema, no rash Neuro: Grossly normal neurologic exam, conversant, interactive. Psych: Speech fluent, thoughts congruent, affect normal Course Vital Signs Vital signs: Vital Signs Temperature 36.7 C 01/31/21 20:20 Pulse 91 H 01/31/21 20:20 Respiratory Rate 16 01/31/21 20:20 Blood Pressure 115/74 01/31/21 20:20 Pulse Oximetry 96 01/31/21 20:20 Temperature 36.7 C 01/31/21 20:20 Temperature Source Oral 01/31/21 20:20 Pulse 91 H 01/31/21 20:20 Respiratory Rate 16 01/31/21 20:20 Blood Pressure 115/74 01/31/21 20:20 Blood Pressure Position Sitting 01/31/21 20:20 Pulse Oximetry 96 01/31/21 20:20 Oxygen Delivery Method Room Air 01/31/21 20:20 Oxygen Flow Rate 0 01/31/21 20:20 Pain Level 8 01/31/21 20:20
[2021-01-31] MEDS: predniSONE 20 MG TAB 60 MG PO (22:22)
[2021-01-31 22:23] VITALS: BP 118/76; PULSE 80; RESP 16; TEMP 36.7; O2SAT 96
== END 2021-01-31 22:24 | disposition home or self-care (01) ==
PROVIDERS: Emergency Provider Emergency Medicine; PCP Nurse Practitioner Family
DX: H65.191 Other acute nonsuppurative otitis media, right ear (principal); M26.69 Other specified disorders of temporomandibular joint
CPT/HCPCS: 99283; J7512

== ENCOUNTER 2021-09-29 23:43 | Emergency (ER) | payer MEDICAID, SELFPAY ==
[2021-09-29 23:50] VITALS: BP 141/90; PULSE 75; RESP 16; TEMP 36.5; O2SAT 95
--- NOTE | 2021-09-29 23:55 | ED.GENADUL_ITS ---
Discharge Plan Disposition Patient Disposition: HOME Condition: Stable Discharge Details Clinical Impression: Sinusitis, Bilateral acute otitis media Primary Care Provider: Jaclyn Martinez ED Provider: Daysi Telles Home Meds and New Rx's Prescriptions: New amoxicillin-pot clavulanate [Augmentin] 875-125 mg tablet 1 tab PO BID 10 Days Qty: 20 RF: 0 No Action albuterol sulfate [Proventil HFA] 90 mcg/actuation HFA aerosol inhaler 2 puff inhalation Q6H PRN (Reason: shortness of breath or wheezing) Qty: 6.7 RF: 0 buspirone 10 mg tablet 10 mg PO BID PRN (Reason: anxiety) Qty: 90 RF: 4 triamcinolone acetonide 0.1 % cream 1 applic TP BID PRN (Reason: atopic dermatitis) Qty: 80 RF: 1 fluticasone propionate [Flonase] 50 mcg/actuation [place],Suspension INTRANASAL RF: 0 Discharge Instructions Instructions: Sinusitis (ED), Ear Infection (ED) Additional Instructions: Take the antibiotic twice daily as prescribed. Eat yogurt or take a probiotic while taking the antibiotic. Continue to use the Flonase for the next few weeks. You may try an ishs-zhs-qviidhe decongestant if this seems to help. Please take Tylenol or Ibuprofen with food every 4-6 hours as needed for pain and swelling. Follow up with primary care provider in 3-5 days. Return to ED sooner if any worsening or concerns. Increase oral fluids. Referrals: Jaclyn Martinez, [employer]PERATOR [Primary Care Provider] - 5 days Medical Decision Making 45-year-old female presents to the ER with chief complaint of bilateral ears feeling plugged, maxillary sinus pressure, yellow discharge from the nose and scratchy and sore throat for the last 4 weeks. Patient reports that she got a flu shot and since then has been having the symptoms. She did have a negative Covid test today. She reports using Flonase and bqes-dpi-utfwtkh [place] cold and sinus with little to no relief. She denies any fever. She has a past medical history of anxiety disorder, she is a daily smoker. Due to the length of symptoms for baseline [address] patient on Augmentin twice daily. Will instruct Flonase next few weeks. Instructed patient to follow-up with PCP. This text was generated using [employer] dictation system, please disregard any oddities of phrase or misspellings. HPI General Mode of arrival: ambulatory . Date/Time Provider Initiated Documentation: 09/29/21 23:44 . Limitations to Documentation: no limitations . Information obtained by: patient and RN notes reviewed . HPI Narrative: 45-year-old female presents to the ER with chief complaint of bilateral ears feeling plugged, maxillary sinus pressure, yellow discharge from the nose and scratchy and sore throat for the last 4 weeks. Patient reports that she got a flu shot and since then has been having the symptoms. She did have a negative Covid test today. She reports using Flonase and qwfe-eih-tnqyuvt [place] cold and sinus with little to no relief. She denies any fever. She has a past medical history of anxiety disorder, she is a daily smoker. Related Data Home Medications Medication Instructions Recorded Confirmed triamcinolone acetonide 0.1 % 1 applic TP BID PRN #80 gm 11/10/20 09/29/21 topical cream albuterol sulfate 90 mcg/actuation 2 puff INHALATION Q6H PRN #6.7 g 06/15/21 aerosol inhaler buspirone 10 mg tablet 10 mg PO BID PRN #90 tab 08/30/21 09/29/21 fluticasone propionate [Flonase] INTRANASAL 09/29/21 amoxicillin-pot clavulanate 1 tab PO BID 10 Days #20 tab 09/30/21 [Augmentin] Previous Rx's Medication Instructions Recorded triamcinolone acetonide 0.1 % 1 applic TP BID PRN #80 gm 11/10/20 topical cream albuterol sulfate 90 mcg/actuation 2 puff INHALATION Q6H PRN #6.7 g 06/15/21 aerosol inhaler buspirone 10 mg tablet 10 mg PO BID PRN #90 tab 08/30/21 amoxicillin-pot clavulanate 1 tab PO BID 10 Days #20 tab 09/30/21 [Augmentin] Allergies Allergy/AdvReac Type Severity Reaction Status Date / Time doxycycline Allergy Intermediate hives Verified 09/29/21 23:54 shrimp Allergy Skin Rash Verified 09/29/21 23:54 cat dander AdvReac Intermediate itchy Verified 09/29/21 23:54 watery eyes General Stated Complaint: RespSymp CHERY: 4 Review of Systems All systems reviewed & are unremarkable except as noted in HPI and below ENT Ears, Nose, Mouth, and Throat: Reports otalgia, Reports facial pain, Reports hearing loss, Reports hoarseness, Reports nasal discharge and Reports sinus pressure Cardiovascular Cardiovascular: Denies chest pain and Denies dyspnea Respiratory Respiratory: Reports change in phlegm color, Reports cough and Denies dyspnea Gastrointestinal Gastrointestinal: Denies diarrhea, Denies nausea and Denies vomiting [facility] Active Problem List Generalized anxiety disorder (Chronic) Cigarette smoker (Chronic) Atopic dermatitis (Chronic) Medical History Bulimia nervosa Depressive disorder Surgical History H/O section (~2001) x 2 S/P appendectomy (~2007) S/P LEEP of cervix (~1997) S/P tonsillectomy and adenoidectomy Family History Mother Depression Breast cancer Hypertension Father Type 2 diabetes mellitus Atrial fibrillation Sister Psoriasis Alcohol abuse Asthma Substance abuse Rheumatoid arthritis Sister Type 2 diabetes mellitus Rheumatoid arthritis Son No problems noted. Son No problems noted. Daughter No problems noted. Maternal Grandfather Alcohol abuse Maternal Grandmother Asthma COPD (chronic obstructive pulmonary disease) Paternal Grandfather Stomach cancer Paternal Grandmother Dementia Social History Smoking/Tobacco Use Status: Current every day Tobacco Type: cigarettes Tobacco: How many years used: 20 Quit status: considering quitting Second Hand Exposure: Yes Smoking risk assessment performed?: Yes Alcohol Intake: current Alcohol Intake frequency: a few times a week Alcohol type: beer Drug use: Never Caregiver/Support person: No Household members: spouse and children Housing: house Communication Needs: None Do you need help understanding health information?: Never 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 Pets and animals: Yes Pets and animals: dog(s), ferret(s) and farm animals Sexually active: Yes Do you think of yourself as: straight/heterosexual Current gender identity: female What is your relationship status?: living with partner How often do you talk on the phone with friends or family?: three or more times per week How often do you get together with friends or relatives?: once per week How often do you attend cheondoism or confucianism services?: 1-3 times per year Do you belong to any clubs or organized social groups?: no Panel score (0-1 are the most socially isolated patients): 2 What type of physical activity do you participate in: walking Duration: 45-60 minutes/day Frequency: 3-4 times per week Leyla/Worship: Pentecostalism Special leyla needs: No Seatbelt use: always Helmet use: Yes Helmet use: always Drive intox or ride w/intox commercial driver: No Do you feel safe at home: Yes Do you feel safe in your relationship?: Yes Female Reproductive History Menstrual control method: natural family planning History History 4 Para 3 Hx # Term Pregnancies Multiple births Hx # Pregnancies Ectopic pregnancies AB induced 1 Hx Number of Living Children 3 AB spontaneous Exam HENMT Head: normal to inspection Ears: mastoids normal and TM abnormal (Bilaterally) bulging and erythematous General nose exam: mucous membranes and turbinates abnormal boggy bilaterally Teeth and gingiva: dentition normal Throat: posterior oropharynx abnormal erythema; no cobblstoning and no exudates Resp Effort & Inspection: normal respiratory effort and able to speak in complete sentences Auscultation: clear to auscultation bilaterally Cardio Heart Sounds: S1 normal and S2 normal Course Vital Signs Vital signs: Vital Signs Temperature 36.5 C 09/29/21 23:50 Pulse 75 09/29/21 23:50 Respiratory Rate 16 09/29/21 23:50 Blood Pressure 141/90 H 09/29/21 23:50 Pulse Oximetry 95 09/29/21 23:50 Temperature 36.5 C 09/29/21 23:50 Temperature Source Oral 09/29/21 23:50 Pulse 75 09/29/21 23:50 Respiratory Rate 16 09/29/21 23:50 Blood Pressure 141/90 H 09/29/21 23:50 Blood Pressure Position Sitting 09/29/21 23:50 Pulse Oximetry 95 09/29/21 23:50 Oxygen Delivery Method Room Air 09/29/21 23:50 Oxygen Flow Rate 0 09/29/21 23:50
[2021-09-30] MEDS: Amoxicillin 875/Clav. 125 TAB PO (00:13)
[2021-09-30] MEDS: Amox. 875/Clav. 125, 2 TABS/BTL 1 TAB PO (00:14)
== END 2021-09-30 00:24 | disposition home or self-care (01) ==
PROVIDERS: Emergency Provider Registered Nurse Emergency; PCP Nurse Practitioner Family
DX: J01.90 Acute sinusitis, unspecified (principal); H66.93 Otitis media, unspecified, bilateral; J02.9 Acute pharyngitis, unspecified
CPT/HCPCS: 99283

== ENCOUNTER 2022-09-09 09:54 | Emergency (ER) | payer MEDICAID, SELFPAY ==
[2022-09-09 10:05] VITALS: BP 121/69; PULSE 77; RESP 20; TEMP 37; O2SAT 97
--- NOTE | 2022-09-09 10:21 | W.ED.GENAD ---
Discharge Plan Disposition Patient Disposition: HOME Discharge Details Chief Complaint: Orthopedic Clinical Impression: Right shoulder strain, Muscle spasm Primary Care Provider: Jaclyn Martinez ED Provider: Darleen Arce Home Meds and New Rx's Prescriptions: New methocarbamol 750 mg tablet 750 mg PO QHS PRN (Reason: muscle spasm) Qty: 7 0RF Continued albuterol sulfate [Proventil HFA] 90 mcg/actuation HFA aerosol inhaler 2 puff inhalation Q6H PRN (Reason: shortness of breath or wheezing) Qty: 6.7 0RF buspirone 10 mg tablet 10 mg PO BID PRN (Reason: anxiety) Qty: 90 4RF triamcinolone acetonide 0.1 % cream 1 applic TP BID PRN (Reason: atopic dermatitis) Qty: 80 1RF Rx Instructions: Apply to affected areas twice a day as needed for eczema rash fluticasone propionate 50 mcg/actuation [place],Suspension INTRANASAL Discharge Instructions Instructions: Shoulder Sprain (ED), Muscle Spasm (ED) Additional Instructions: Your x-ray is reassuring here today. As we discussed, the pain does not seem to be where the typical pain is for your rotator cuff. More consistent with muscle spasm and strain. Please encourage hydration. Tylenol and/or ibuprofen as needed for discomfort. As discussed, please perform passive range of motion exercises as we discussed. Use included dangling your arm and trying to get this to rotate, using a doorway to gently externally rotate your shoulder and then trying to reach back towards her bottom. Please not push through to the point of severe pain, rather just try to increase her range of motion to prevent frozen shoulder. You may use a sling if needed to help with discomfort but should take this off several times a day to allow full range of motion. Please follow-up with primary care in 2 weeks for reevaluation. I have also referred you to physical therapy and form is attached. If you develop any new or worsening symptoms please seek care urgently once again. Stand Alone Forms: Physical Therapy Referral Referrals: Jaclyn Martinez NP [Primary Care Provider] - Discharge Data Discharge Date/Time-TO BE ENTERED AT DEPARTURE: 09/09/22 12:06 Medical Decision Making Patient is a pleasant 46-year-old [id number] female presenting today with chief complaint of right shoulder pain. She reports that last night she was loading the wood stove when a piece of wood began to fall from her arm and she quickly reached out and caught it. She denies any numbness or tingling. She denies other injury at the time of the incident. No radiation of pain. She did not fall during this incident. She does report that she has had historical issues with the right shoulder associated with previous athletic injury On exam, elliot appears non-toxic. He is neurovascularly intact in the RUE. ROM is limed, more with active ROM. No pop-eye deformity, pain over hte biceps tendon with palpation but negative Speeds. Pain is not radiating. Pain maximal superioposterrior along the trapezius. Primarily concerned for muscular strain. however, given mechanism and everity, considered bony abnormality and will obtain XR. Will give APAP and NSAID, apply Lidoderm patch. FINDINGS: BONES: No acute fracture is present. No bony destructive lesion is seen. JOINTS: No dislocation present. SOFT TISSUE: Normal. IMPRESSION: Unremarkable radiographs of the right shoulder. Exam is most concerning for muscle spasm as it is along the trapezius. No lateral pain or in typical area for rotator cuf tear. More concerned with muscle spasm. Encouraged hydration. Encouarged ROM, demonstrated passive ROM. Sh ehas done well with PT in the past, will refer again to PT. Discussed pain management. We discussed use of sling. I am worried this may increase risk of adhsesive capsulitis. However, advised that this may help with pain, particularly when at work. She will remove multiple times a day to complete passive ROM. Return precautions discussed. Advised f/u with PCP. All of her questions and concerns were addressed, they are in agreeemtn with this plan. HPI General Date/Time Provider Initiated Documentation: 09/09/22 10:21. Limitations to Documentation: no limitations. Information obtained by: patient and RN notes reviewed. History of Present Illness 46 year old F presents to the emergency department with the chief complaint of right shoulder pain, described as moderate, with intensity rated at 6. Quality is described as aching, and is localized to the right and upper extremity. Patient reports no radiation. Patient started experiencing this day(s) and it has been constant. Immobilization improves symptom(s), Movement worsens symptoms . Patient notes no other symptoms.. Patient did receive the following treatments prior to arrival, none Related Data Home Medications Medication Instructions Recorded Confirmed triamcinolone acetonide 0.1 % 1 applic topical BID PRN atopic 11/10/20 09/09/22 topical cream dermatitis #80 grams albuterol sulfate 90 mcg/actuation 2 puff inhalation Q6H PRN 06/15/21 09/09/22 aerosol inhaler (Proventil HFA) shortness of breath or wheezing #6.7 grams buspirone 10 mg tablet 10 mg PO BID PRN anxiety #90 tabs 08/30/21 09/09/22 fluticasone propionate 50 intranasal 09/29/21 07/10/22 mcg/actuation nasal spray,suspension methocarbamol 750 mg tablet 750 mg PO QHS PRN muscle spasm #7 09/09/22 tabs Previous Rx's Medication Instructions Recorded triamcinolone acetonide 0.1 % 1 applic topical BID PRN atopic 11/10/20 topical cream dermatitis #80 grams albuterol sulfate 90 mcg/actuation 2 puff inhalation Q6H PRN 06/15/21 aerosol inhaler (Proventil HFA) shortness of breath or wheezing #6.7 grams buspirone 10 mg tablet 10 mg PO BID PRN anxiety #90 tabs 08/30/21 methocarbamol 750 mg tablet 750 mg PO QHS PRN muscle spasm #7 09/09/22 tabs Allergies Allergy/AdvReac Type Severity Reaction Status Date / Time doxycycline Allergy Intermediate hives Verified 07/10/22 15:39 shrimp Allergy Skin Rash Verified 07/10/22 15:39 cat dander AdvReac Intermediate itchy Verified 07/10/22 15:39 watery eyes General Stated Complaint: Orthopedic CHERY: 4 Review of Systems Constitutional Constitutional: Reports as per HPI, Denies chills, Denies fever(s), Denies headache(s) and Denies weakness ENT Ears, Nose, Mouth, and Throat: Denies headache(s) Cardiovascular Cardiovascular: Reports as per HPI Respiratory Respiratory: Reports as per HPI and Denies cough Musculoskeletal Musculoskeletal: Reports as per HPI and Denies tingling Integumentary/Breasts Skin/Breast: Reports as per HPI, Denies rash and Denies wounds Neurologic Neurologic: Reports as per HPI, Denies headache(s), Denies tingling, Denies paresthesias and Denies weakness [facility] All Active Problems (Updated 09/09/22 @ 11:55 by CASS Velez) Right shoulder strain (Acute) Muscle spasm (Acute) Sensation of pressure in bladder area (Acute) Generalized anxiety disorder (Chronic) Cigarette smoker (Chronic) Atopic dermatitis (Chronic) Medical History Bulimia nervosa COVID-19 virus infection (~10/2021) Depressive disorder Surgical History H/O section (~2001) x 2 S/P appendectomy (~2007) S/P LEEP of cervix (~1997) S/P tonsillectomy and adenoidectomy Family History Mother Depression Breast cancer Hypertension Father Type 2 diabetes mellitus Atrial fibrillation Sister Psoriasis Alcohol abuse Asthma Substance abuse Rheumatoid arthritis Sister Type 2 diabetes mellitus Rheumatoid arthritis Son No problems noted. Son No problems noted. Daughter No problems noted. Maternal Grandfather Alcohol abuse Maternal Grandmother Asthma COPD (chronic obstructive pulmonary disease) Paternal Grandfather Stomach cancer Paternal Grandmother Dementia Social History Smoking/Tobacco Use Status: Current every day Tobacco Type: cigarettes Tobacco: How many years used: 20 Quit status: considering quitting Second Hand Exposure: Yes Smoking risk assessment performed?: Yes Alcohol Intake: current Alcohol Intake frequency: a few times a week Alcohol type: beer Drug use: Never Caregiver/Support person: No Household members: spouse and children Housing: house Communication Needs: None Do you need help understanding health information?: Never 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 Pets and animals: Yes Pets and animals: dog(s), ferret(s) and farm animals Sexually active: Yes Do you think of yourself as: straight/heterosexual Current gender identity: female What is your relationship status?: living with partner How often do you talk on the phone with friends or family?: three or more times per week How often do you get together with friends or relatives?: once per week How often do you attend restorationism or advent services?: 1-3 times per year Do you belong to any clubs or organized social groups?: no Panel score (0-1 are the most socially isolated patients): 2 What type of physical activity do you participate in: walking Duration: 45-60 minutes/day Frequency: 3-4 times per week Leyla/Latter-Day: Amish Special leyla needs: No Seatbelt use: always Helmet use: Yes Helmet use: always Drive intox or ride w/intox hydraulic lift driver: No Do you feel safe at home: Yes Do you feel safe in your relationship?: Yes Female Reproductive History Menstrual control method: natural family planning History History 4 Para 3 Hx # Term Pregnancies Multiple births Hx # Pregnancies Ectopic pregnancies AB induced 1 Hx Number of Living Children 3 AB spontaneous Exam Const General: cooperative, healthy appearing, comfortable, no acute distress, well developed and well groomed Nutritional Appearance: average body habitus and well nourished Orientation: alert and awake Resp Effort & Inspection: normal respiratory effort, able to speak in complete sentences and no respiratory distress Cardio Rate: regular rate Rhythm: regular rhythm Skin General skin exam: no rashes or lesions noted Lesions: no lesions Rashes: no rashes Trauma: no lacerations or abrasions Neuro General: patient alert and patient awake Cognition: normal cognition Speech: speech normal Gait: normal gait Motor: muscle tone normal throughout Sensory Exam: no sensory deficits noted Extrem Shoulder/upper arm images: 1. Area of discomfort in in the upper and posterior shoulder. 2+ distal pulses, sensation intact. He has intact neuro exam, no axillary nerve disfunction. Active ROM to 90, another 20 passively. ER intact. IR limited to buttock. No objective evidence of trauma. No ashley deformity. Slight pain over the biceps tendon. No AC joint tenderness. No deformity to AC joint. No pain ove rthe lateral shoulder, no pain over the subacromial space. Pain maximal superior along the trapezius and down posteirorr shoulderr. Full ROM of elbow, wrist, hand. 5/5 rn anesthetist strength. Psych Appearance: grossly normal and well kempt Mental Status: mental status grossly normal Speech and Movement: speech and movement normal Course Vital Signs Vital signs: Vital Signs Temperature 37 C 09/09/22 10:05 Pulse 77 09/09/22 10:05 Respiratory Rate 20 09/09/22 10:05 Blood Pressure 121/69 09/09/22 10:05 Pulse Oximetry 97 09/09/22 10:05 Temperature 37 C 09/09/22 10:05 Temperature Source Temporal Artery Scan 09/09/22 10:05 Pulse 77 09/09/22 10:05 Respiratory Rate 20 09/09/22 10:05 Respiratory Effort Non-Labored 09/09/22 10:19 Blood Pressure 121/69 09/09/22 10:05 Blood Pressure Position Sitting 09/09/22 10:05 Pulse Oximetry 97 09/09/22 10:05 Pain Level 6 09/09/22 10:05
--- NOTE | 2022-09-09 10:30 | DI.RAD_ITS ---
Exam(s) XR SHOULDER RT COMPLETE 2+V EXAM: XR SHOULDER RT COMPLETE 2+V CLINICAL HISTORY: injured tossing wood into woodstove, superior pain. TECHNIQUE: 2D digital imaging was performed. Five views. COMPARISON: No exams were available for comparison FINDINGS: BONES: No acute fracture is present. No bony destructive lesion is seen. JOINTS: No dislocation present. SOFT TISSUE: Normal. IMPRESSION: Unremarkable radiographs of the right shoulder. DATA REPOSITORY: RADIATION DOSE DELIVERED:
[2022-09-09] MEDS: Acetaminophen 500 MG TAB 1000 MG PO (11:30)
[2022-09-09] MEDS: Ibuprofen 600 MG TAB PO (11:31)
== END 2022-09-09 12:06 | disposition home or self-care (01) ==
PROVIDERS: Emergency Provider Physician Assistant; PCP Nurse Practitioner Family
DX: S46.811A Strain of other muscles, fascia and tendons at shoulder and upper arm level, right arm, initial encounter (principal); X50.1XXA Overexertion from prolonged static or awkward postures, initial encounter; M62.838 Other muscle spasm
CPT/HCPCS: 99283; 73030

== ENCOUNTER 2023-09-02 00:30 | Emergency (ER) | payer SELFPAY ==
[2023-09-02 00:34] VITALS: BP 152/88; PULSE 98; RESP 16; TEMP 36.9; O2SAT 96
--- NOTE | 2023-09-02 00:39 | W.ED.GENAD ---
Discharge Plan Disposition Patient Disposition: Home Discharge Details Clinical Impression: Finger laceration Primary Care Provider: Jaclyn Martinez ED Provider: Austin Gonzalez Home Meds and New Rx's Prescriptions: New sulfamethoxazole-trimethoprim [Bactrim] 400-80 mg tablet 1 tab PO BID 7 Days Qty: 14 0RF No Action albuterol sulfate [Proventil HFA] 90 mcg/actuation HFA aerosol inhaler 2 puff inhalation Q6H PRN (Reason: shortness of breath or wheezing) Qty: 6.7 0RF buspirone 10 mg tablet 10 mg PO BID PRN (Reason: anxiety) Qty: 90 3RF triamcinolone acetonide 0.1 % cream 1 applic TP BID PRN (Reason: atopic dermatitis) Qty: 80 1RF Rx Instructions: Apply to affected areas twice a day as needed for eczema rash fluticasone propionate 50 mcg/actuation [place],Suspension 1 spray INTRANASAL PRN Discharge Instructions Instructions: Finger Laceration (ED) Additional Instructions: keep hand clean, dry and covered wash with soap and water sutures will dissolve and don't need to be removed keep wrapped in bulky dressing to limit movement of your finger watch closely for signs of infection -redness, swelling, drainage Medical Decision Making Emergent evaluation of left index finger laceration. Initial differential includes soft tissue injury, foreign body, ligamentous injury. Will x-ray, give first dose of antibiotics. Tetanus is up-to-date. Will pain control and repair laceration. 0200: xray reviewed and independently interpreted : no foreign body or bony abnormality. laceration repaired without complication. placed in bulky dressing to minimize movement. wound care discussed and signs of infection advised. recommended f/u with PCP for wound check in 5-7 days. will treat with bactrim for prophylaxis. HPI General Date/Time Provider Initiated Documentation: 09/02/23 00:38. Limitations to Documentation: no limitations. Information obtained by: patient. HPI Narrative: 47-year-old female without significant past medical history presents for evaluation of left hand injury. She reports prior to arrival she was trying to mushroom picker a saw and the blade cut her left index finger. This was not running. She reports bleeding to the area that has improved with a wrap. She denies any numbness, tingling or difficulty moving her finger. She reports her tetanus is up-to-date. Related Data Home Medications Medication Instructions Recorded Confirmed albuterol sulfate 90 mcg/actuation 2 puff inhalation Q6H PRN 06/15/21 09/02/23 aerosol inhaler (Proventil HFA) shortness of breath or wheezing #6.7 grams fluticasone propionate 50 1 spray intranasal PRN 09/29/21 09/02/23 mcg/actuation nasal spray,suspension buspirone 10 mg tablet 10 mg PO BID PRN anxiety #90 tabs 12/31/22 09/02/23 triamcinolone acetonide 0.1 % 1 applic topical BID PRN atopic 08/27/23 09/02/23 topical cream dermatitis #80 grams sulfamethoxazole 400 1 tab PO BID 7 days #14 tabs 09/02/23 mg-trimethoprim 80 mg tablet (Bactrim) Previous Rx's Medication Instructions Recorded albuterol sulfate 90 mcg/actuation 2 puff inhalation Q6H PRN 06/15/21 aerosol inhaler (Proventil HFA) shortness of breath or wheezing #6.7 grams buspirone 10 mg tablet 10 mg PO BID PRN anxiety #90 tabs 12/31/22 triamcinolone acetonide 0.1 % 1 applic topical BID PRN atopic 08/27/23 topical cream dermatitis #80 grams sulfamethoxazole 400 1 tab PO BID 7 days #14 tabs 09/02/23 mg-trimethoprim 80 mg tablet (Bactrim) Allergies Allergy/AdvReac Type Severity Reaction Status Date / Time doxycycline Allergy Intermediate hives Verified 09/02/23 00:56 shrimp Allergy Skin Rash Verified 09/02/23 00:56 cat dander AdvReac Intermediate itchy Verified 09/02/23 00:56 watery eyes General Stated Complaint: Laceration CHERY: 4 PFSH All Active Problems (Updated 09/02/23 @ 01:37 by Austin Gonzalez MD) Finger laceration (Acute) Sensation of pressure in bladder area (Acute) Generalized anxiety disorder (Chronic) Cigarette smoker (Chronic) Atopic dermatitis (Chronic) Medical History COVID-19 virus infection (~10/2021) Depressive disorder Bulimia nervosa Surgical History S/P LEEP of cervix (~1997) H/O section (~2001) x 2 S/P tonsillectomy and adenoidectomy S/P appendectomy (~2007) Family History Mother Depression Breast cancer Hypertension Father Type 2 diabetes mellitus Atrial fibrillation Sister Psoriasis Alcohol abuse Asthma Substance abuse Rheumatoid arthritis Sister Type 2 diabetes mellitus Rheumatoid arthritis Son No problems noted. Son No problems noted. Daughter No problems noted. Maternal Grandfather Alcohol abuse Maternal Grandmother Asthma COPD (chronic obstructive pulmonary disease) Paternal Grandfather Stomach cancer Paternal Grandmother Dementia Social History Smoking/Tobacco Use Status: Current every day Tobacco Type: cigarettes Tobacco: How many years used: 20 Quit status: considering quitting Second Hand Exposure: Yes Smoking risk assessment performed?: Yes Alcohol Intake: current Alcohol Intake frequency: a few times a week Alcohol type: beer Drug use: Never Caregiver/Support person: No Household members: spouse and children Housing: house Communication Needs: None Do you need help understanding health information?: Never 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 Pets and animals: Yes Pets and animals: dog(s), ferret(s) and farm animals Sexually active: Yes Do you think of yourself as: straight/heterosexual Current gender identity: female What is your relationship status?: living with partner How often do you talk on the phone with friends or family?: three or more times per week How often do you get together with friends or relatives?: once per week How often do you attend alevism or pentecostalism services?: 1-3 times per year Do you belong to any clubs or organized social groups?: no Panel score (0-1 are the most socially isolated patients): 2 What type of physical activity do you participate in: walking Duration: 45-60 minutes/day Frequency: 3-4 times per week Leyla/Restorationism: Religious Special leyla needs: No Seatbelt use: always Helmet use: Yes Helmet use: always Drive intox or ride w/intox otr flatbed driver: No Do you feel safe at home: Yes Do you feel safe in your relationship?: Yes Female Reproductive History Menstrual control method: natural family planning History History 4 Para 3 Hx # Term Pregnancies Multiple births Hx # Pregnancies Ectopic pregnancies AB induced 1 Hx Number of Living Children 3 AB spontaneous Exam Narrative Exam Narrative: Review of Systems: All systems reviewed & are unremarkable except as noted in HPI and below Well-developed, no acute distress NACT PERRL, normal conjunctiva RRR Unlabored respiratory effort Nondistended abdomen + Left index finger laceration, appx 2 cm, Valdivia aspect over the PIP, a thin flap of skin avulsed, connected by only a small stalk of tissue, no evidence of bony or tendon injury, no foreign body, n/v intact , good cap refill No rashes or lesions. no focal neurologic deficits Appropriate mood and affect Course Vital Signs Vital signs: Vital Signs Temperature 36.9 C 09/02/23 00:34 Pulse 98 H 09/02/23 00:34 Respiratory Rate 16 09/02/23 00:34 Blood Pressure 152/88 H 09/02/23 00:34 Pulse Oximetry 96 09/02/23 00:34 Temperature 36.9 C 09/02/23 00:34 Temperature Source Oral 09/02/23 00:34 Pulse 98 H 09/02/23 00:34 Respiratory Rate 16 09/02/23 00:34 Blood Pressure 152/88 H 09/02/23 00:34 Blood Pressure Position Sitting 09/02/23 00:34 Pulse Oximetry 96 09/02/23 00:34 Oxygen Delivery Method Room Air 09/02/23 00:34 Oxygen Flow Rate 0 09/02/23 00:34 Procedures Laceration Laceration 1: Site: hand (index finger) Side (If applicable): left Size (cm): 2 Description: flap and irregular Depth: simple, single layer Local Anesthetic: other anesthetic (LET) Pre-repair: wound explored, irrigated extensively and deep structures intact Skin layer closed with: other (5-0 chromic gut) Size (cm): 5-0 Number of sutures: 7 Technique: simple, interrupted
[2023-09-02] MEDS: Lidocaine/Epinephri/Tetracaine Topical Gel 3 ML TP (00:52)
[2023-09-02] MEDS: Sulfameth/Trimeth DS TAB 1 TAB PO (00:52)
--- NOTE | 2023-09-02 00:59 | NUR.NOTE ---
Gross decon of left hand and LET applied, FPJ
--- NOTE | 2023-09-02 01:00 | DI.RAD_ITS ---
Exam(s) XR FINGER LT INDEX EXAM: XR FINGER LT INDEX CLINICAL HISTORY: left index. TECHNIQUE: 2D digital imaging was performed. COMPARISON: CR XR FINGER LT INDEX from 05/22/2020 FINDINGS: 3 views There is superficial and subcutaneous soft tissue injury on the volar aspect of the finger. No radio paque foreign body. No gas in the soft tissues. No fracture nor dislocation. No erosions. No degenerative changes. IMPRESSION: Volar soft tissue injury. No osseous findings. DATA REPOSITORY: RADIATION DOSE DELIVERED:
[2023-09-02 01:43] VITALS: BP 140/82; PULSE 90; RESP 16; O2SAT 97
--- NOTE | 2023-09-02 01:50 | DI.VRAD_ITS ---
PROCEDURE INFORMATION: Exam: XR Left Finger(s) Exam date and time: 09/02/2023 1:05 AM Age: 47 years old Clinical indication: Injury or trauma; Left; Index finger; Injury date: 09/01/23; Injury details: Finger laceration TECHNIQUE: Imaging protocol: Radiologic exam of the left fingers. Views: Minimum 2 views. COMPARISON: CR XR FINGER LT INDEX 05/22/2020 3:22 PM FINDINGS: Bones/joints: Normal. Soft tissues: Normal. IMPRESSION: No acute findings. Dictated and Authenticated by: Kam Bellamy MD. Ordering:[facility] Lisa Faust MD
== END 2023-09-02 01:43 | disposition home or self-care (01) ==
PROVIDERS: Emergency Provider Emergency Medicine; PCP Nurse Practitioner Family
DX: S61.211A Laceration without foreign body of left index finger without damage to nail, initial encounter (principal); F17.210 Nicotine dependence, cigarettes, uncomplicated; W27.0XXA Contact with workbench tool, initial encounter; Y93.89 Activity, other specified
CPT/HCPCS: 12001; 99283; 73140

== ENCOUNTER 2024-11-07 17:58 | Emergency (ER) | payer SELFPAY ==
[2024-11-07 18:02] VITALS: BP 140/70; PULSE 72; RESP 16; TEMP 36.9; O2SAT 98
--- NOTE | 2024-11-07 18:15 | DI.RAD_ITS ---
Exam(s) XR FINGER RT INDEX EXAM: XR FINGER RT INDEX CLINICAL HISTORY: Fall onto hand, R. index finger pain. TECHNIQUE: 2D digital imaging was performed. Three views. COMPARISON: CR,XR XR FINGER LT INDEX from 09/02/2023 FINDINGS: BONES: No acute fracture is present. No bony destructive lesion is seen. JOINTS: No dislocation present. SOFT TISSUE: Normal. IMPRESSION: No evidence of acute fracture, dislocation, or subluxation. DATA REPOSITORY: RADIATION DOSE DELIVERED:
--- NOTE | 2024-11-07 18:15 | DI.RAD_ITS ---
Exam(s) XR KNEE LT 4V AP,LAT,LIBBY,PAT XR KNEE RT 4V AP,LAT,LIBBY,PAT EXAM: XR KNEE RT 4V AP,LAT,LIBBY,PAT CLINICAL HISTORY: Fall onto kneecaps, pain b/l. TECHNIQUE: 2D digital imaging was performed. Four views of both knees COMPARISON: CR,XR XR KNEE LT 4V AP,LAT,LIBBY,PAT from 11/07/2024 FINDINGS: BONES: No acute fracture is present. No bony destructive lesion is seen. JOINTS: The knee is normally aligned. No joint effusion is seen. SOFT TISSUE: Normal. IMPRESSION: Unremarkable radiographs of both knees. DATA REPOSITORY: RADIATION DOSE DELIVERED:
[2024-11-07] MEDS: Acetaminophen 500 MG TAB 1000 MG PO (18:25)
[2024-11-07] MEDS: Ibuprofen 600 MG TAB PO (18:25)
--- NOTE | 2024-11-07 18:32 | ED.GENADUL_ITS ---
Discharge Plan Disposition Patient Disposition: Home Condition: Stable Discharge Details Clinical Impression: Finger fracture, right, Fall Primary Care Provider: Jaclyn Martinez ED Provider: Nancy Pinedo Home Meds and New Rx's Prescriptions: No Action albuterol sulfate [Proventil HFA] 90 mcg/actuation HFA aerosol inhaler 2 puff inhalation Q6H PRN (Reason: shortness of breath or wheezing) Qty: 6.7 0RF buspirone 10 mg tablet 10 mg PO BID PRN (Reason: anxiety) Qty: 90 3RF triamcinolone acetonide 0.1 % cream 1 applic TP BID PRN (Reason: atopic dermatitis) Qty: 80 1RF Rx Instructions: Apply to affected areas twice a day as needed for eczema rash fluticasone propionate 50 mcg/actuation [place],Suspension 1 spray INTRANASAL PRN Discharge Instructions Instructions: Finger Fracture ED Additional Instructions: You were seen in the emergency department today for evaluation of a finger injury after a fall. In our department you have a full physical examination performed and had x-ray imaging that showed a small fracture in the middle bone of your finger. You were placed in a splint. You had x-rays of your knees that did not show any significant abnormalities. Please continue to use Tylenol and ibuprofen as needed for pain and ice for swelling. Please follow-up with your primary care provider in the next few days to discuss this visit and any symptoms that change, worsen, or persist. Thank you for allowing us to be part of your care. HPI General Mode of arrival: ambulatory . Date/Time Provider Initiated Documentation: 11/07/24 18:01 . Limitations to Documentation: no limitations . Information obtained by: patient, family and old records reviewed . HPI Narrative: HPI: This is a 48-year-old female patient presenting for evaluation after a fall. The patient reports that she was getting out of her car and slipped on the ice, falling and landing on her bilateral knees as well as her right hand. She did not strike her head or lose consciousness, does not take any blood thinning medications. She was able to get up and ambulate but did have some pain in the front of both of her knees. Additionally, she has significant pain in her right index finger and pain when she tries to bend her finger. Prior to this event she was in her normal state of health and she did not experience any dizziness, lightheadedness, or loss of consciousness prior to her fall. This shipley ppened just prior to arrival at our facility and she has not tried any medications in the outpatient environment for management of her symptoms. Exam: Gen: Awake and alert, in no apparent distress HEENT: Non-icteric sclera, conjunctiva noninjected, PERRL. Scalp atraumatic Neck: Supple, full range of motion without pain, no tenderness to palpation of the C-spine Lungs: No apparent respiratory distress, normal respiratory effort. CV: Appears well perfused, strong distal pulses, not tachycardic Abdomen: Non-distended MSK: Moves 4 extremities without apparent limitation in ROM. No T or L-spine tenderness to palpation. Pelvis stable to AP compression, chest wall without injury. The patient's bilateral knees are without external signs of trauma such as bruising, deformity, or abrasion. She has full range of motion of the knees, tenderness to palpation just inferior to the patella bilaterally, no posterior or joint line tenderness. No palpable effusion. The patient's right index fing er is tender to palpation at the PIP, with no overlying skin changes. The remainder of her hand exam is reassuring without tenderness, anatomical snuffbox pain, or deformity Skin: Visualized skin without rashes, cyanosis. Neuro: Normal Gait, no obvious focal deficits or facial asymmetry. Speaks in full, clear sentences. Psych: Appropriate for situation. MDM: This is a 48-year-old female patient presenting for evaluation after a fall. Differential includes but is not limited to knee injury, finger fracture, dislocation, contusion, sprain/strain. I am reassured against head injury, spinal injury, and the patient did not have any medical abnormalities prior to the fall to suggest syncope, orthostasis, vasovagal syndrome, seizure, etc. We will obtain x-ray imaging of the affected finger, and the bilateral knees. I will provide the patient with a dose of Tylenol and ibuprofen for symptomatic management. ED Course: I independently interpreted the patient's x-ray imaging. Her bilater al knees are without significant osseous abnormality, and given that the patient is able to bear weight and ambulate without difficulty I have a low concern for severe injury that would require further workup and intervention in the ED. Her finger x-ray does show a small potential avulsion fracture at the proximal aspect of the middle phalanx, for which the patient was placed in a splint. At this time, the patient has had a full medical evaluation and is safe for discharge to home. They are hemodynamically stable, ambulatory, and tolerating PO. They are understanding of the follow-up plan and return precautions. They left our facility without incident. Nancy Pinedo MD Related Data Home Medications ?Medication ?Instructions ?Recorded ?Confirmed albuterol sulfate 90 mcg/actuation 2 puff inhalation Q6H PRN 06/15/21 11/07/24 aerosol inhaler (Proventil HFA) shortness of breath or wheezing #6.7 grams fluticasone propionate 50 1 spray intranasal PRN 09/29/21 11/07/24 mcg/actuation nasal spray,suspension buspirone 10 mg tablet 10 mg PO BID PRN anxiety #90 tabs 12/31/22 11/07/24 triamcinolone acetonide 0.1 % 1 applic topical BID PRN atopic 08/27/23 11/07/24 topical cream dermatitis #80 grams Previous Rx's ?Medication ?Instructions ?Recorded albuterol sulfate 90 mcg/actuation 2 puff inhalation Q6H PRN 06/15/21 aerosol inhaler (Proventil HFA) shortness of breath or wheezing #6.7 grams buspirone 10 mg tablet 10 mg PO BID PRN anxiety #90 tabs 12/31/22 triamcinolone acetonide 0.1 % 1 applic topical BID PRN atopic 08/27/23 topical cream dermatitis #80 grams Allergies Allergy/AdvReac Type Severity Reaction Status Date / Time doxycycline Allergy Intermediate hives Verified 11/07/24 18:04 shrimp Allergy Skin Rash Verified 11/07/24 18:04 cat dander AdvReac Intermediate itchy Verified 11/07/24 18:04 watery eyes General Stated Complaint: Orthopedic CHERY: 4 Course Vital Signs Vital signs: Vital Signs Temperature 36.9 C 11/07/24 18:02 Pulse 72 11/07/24 18:02 Respiratory Rate 16 11/07/24 18:02 Blood Pressure 140/70 11/07/24 18:02 Pulse Oximetry 98 11/07/24 18:02 Temperature 36.9 C 11/07/24 18:02 Pulse 72 11/07/24 18:02 Respiratory Rate 16 11/07/24 18:02 Blood Pressure 140/70 11/07/24 18:02 Pulse Oximetry 98 11/07/24 18:02 Pain Level 10 11/07/24 18:25 Medical Decision Making Quality:SDOH Health Related Social Needs: No Data to Display PFSH All Active Problems (Updated 11/07/24 @ 19:17 by Nancy Pinedo MD) Fall (Acute) Finger fracture, right (Acute) Sensation of pressure in bladder area (Acute) Generalized anxiety disorder (Chronic) Cigarette smoker (Chronic) Atopic dermatitis (Chronic) Medical History COVID-19 virus infection (~10/2021) Depressive disorder Bulimia nervosa Surgical History S/P LEEP of cervix (~1997) H/O section (~2001) x 2 S/P tonsillectomy and adenoidectomy S/P appendectomy (~2007) Family History Mother Depression Breast cancer Hypertension Father Type 2 diabetes mellitus Atrial fibrillation Sister Psoriasis Alcohol abuse Asthma Substance abuse Rheumatoid arthritis Sister Type 2 diabetes mellitus Rheumatoid arthritis Son No problems noted. Son No problems noted. Daughter No problems noted. Maternal Grandfather Alcohol abuse Maternal Grandmother Asthma COPD (chronic obstructive pulmonary disease) Paternal Grandfather Stomach cancer Paternal Grandmother Dementia Social History Smoking/Tobacco Use Status: Current every day Tobacco Type: cigarettes Tobacco: How many years used: 20 Quit status: considering quitting Second Hand Exposure: Yes Smoking risk assessment performed?: Yes Alcohol Intake: current Alcohol Intake frequency: a few times a week Alcohol type: beer Drug use: Never Substance use type: does not use Caregiver/Support person: No Household members: spouse and children Housing: house Communication Needs: None Do you need help understanding health information?: Never 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 Pets and animals: Yes Pets and animals: dog(s), ferret(s) and farm animals Sexually active: Yes Do you think of yourself as: straight/heterosexual Current gender identity: female What is your relationship status?: living with partner How often do you talk on the phone with friends or family?: three or more times per week How often do you get together with friends or relatives?: once per week How often do you attend scientology or christian services?: 1-3 times per year Do you belong to any clubs or organized social groups?: no Panel score (0-1 are the most socially isolated patients): 2 What type of physical activity do you participate in: walking Duration: 45-60 minutes/day Frequency: 3-4 times per week Leyla/Gnosticist: Samaritan Special leyla needs: No Seatbelt use: always Helmet use: Yes Helmet use: always Drive intox or ride w/intox log driver: No Do you feel safe at home: Yes Do you feel safe in your relationship?: Yes Female Reproductive History Menstrual control method: natural family planning History History 4 Para 3 Hx # Term Pregnancies Multiple births Hx # Pregnancies Ectopic pregnancies AB induced 1 Hx Number of Living Children 3 AB spontaneous
--- OUTSIDE RECORDS SUMMARY | 2024-11-07 19:06 | XMS_ITS | Data Portability ---
Author Organization [place] - [facility] Address [place] [address] Assessment No assessment recorded. Plan of Treatment Reminders Order Date Submit Date Provider Last Modified By Organization Details Last Modified Time Details Appointments None recorded. Lab None recorded. Referral None recorded. Procedures None recorded. Surgeries None recorded. Imaging None recorded. Medication Orders prednisone 10 mg tablet 2023 024 [email or web address] [id number], [address] [place] [address], [id number], 19:59:05 prednisone 10 mg tablet 2023 024 [email or web address] Not available 19:59:05 Patient TargetsNo targets recorded. Patient Instructions Encounter Date Encounter Id Patient Instructions Last Modified By Organization Details Last Modified Time 03/24/2024 [id number] 1. Currently I d o not see any findings to suggest infectious etiology. I think this is all result of an allergic reaction. 2. It is very reassuring that a lot of the redness and swelling has improved. I would like to immobilize the hand to help continue to improve this. I have placed you in a metacarpal splint for immobilization. I do recommend you wear this as often as possible and definitely with sleeping. If possible you should wear work if you cannot wear it at work try to rest the hand and not overuse it. 3. I have started you on a strong anti-inflammatory called prednisone. You were given your first 40 mg dose here. You were going to do a taper dose over the next 8 days. You will do 40 mg for 2 days, 30 mg x 2 days, 20 mg x 2 days and then 10 mg x 2 days. Please make sure you keep a careful log of what you took on which day in an effort to make sure you are doing the taper appropriately. 4. When you go to the pharmacy I would like you to also get the vczp-isr-hokflal cetirizine also known as Zyrtec. You can do this tablet once daily in the morning along with the prednisone. 5. I do not expect you should have any worsening. If you develop return of swelling, redness, red streaking please return for reevaluation and consideration for need for antibiotics but currently there are no findings to suggest need for such. [email or web address] Not available 03/24/2024 18:52:23 Reason for Referral None Reported. Problems Name Problem SNOMED Code Status Onset Date Resolution Date Notes Provider Name and Address Organization Details Recorded Time Allergic reaction [id number] Active 024 CHEY RODRIGUES PA-C [facility] [address], [place], [address] [facility] 4 18:50:26 Problem Notes None recorded. Medical Equipment None Reported. Allergies Allergen ID Allergen Name Allergen Category Reaction Reaction Severity Criticality Documentation Date Start Date Code Code System Note Provider Name and Address Organization Details Recorded Time 59137 cat dander environme nt eye swelling mild low 03/24/2024 Sadie noriega, [facility] 4 17:51:36 No known drug allergies Medications Name Sig Start Date Stop Date Status Note LastModified by Organization Details LastModified Time prednisone 10 mg tablet Take 4 tablets by oral route. active Not Available Not Available No t Available sulfamethox azole 400 mg-trimetho prim 80 mg tablet TAKE 1 TABLET BY MOUTH TWICE DAILY FOR 7 DAYS 03/24 completed Not Available Not Available Not Available triamcinolo ne acetonide 0.1 % topical cream APPLY TOPICALLY TO THE AFFECTED AREA TWICE DAILY NEEDED FOR ATOPIC DERMATITI S active Not Available Not Available No t Available buspirone PRN active Not Available Not Maria ilable Not Available Vitals Date Recorded Body height Body mass index (BMI) Body weight Body temperature Oxygen saturation Oxygen saturation in Arterial blood by Pulse oximetry Heart rate Respiratory rate Systolic blood pressure Diastolic blood pressure Provider Name and Address Organization Details Last Updated DateTime 167.64 cm 23.4 kg/m2 48503.8 9 g 97.2 [degF] 98 % 98 % 68 /min 16 /min 129 mm[Hg] 84 mm[Hg] Sadie Coleman [facility] 17:45:52 Social History Question Answer Notes LastModified by Organizat ion Details LastModified Time Tobacco Smoking Status Current Every Day Smoker Sadie Coleman null, [facility] 03/24/2024 17:54:28 What Was The Date Of Your Most Recent Tobacco Screening? 03/24/2024 Information not available 03/24/2024 At What Age Did You Start Smoking Tobacco? -21 Information not available 03/24/2024 How Much Tobacco Do You Smoke? 0.5 PPD Information not available 03/24/2024 Has Tobacco Cessation Counseling Been Provided? Yes Information not available 03/24/2024 On What Date Was Tobacco Cessation Counseling Provided? 03/24/2024 Information not available 03/24/2024 How Many Years Have You Smoked Tobacco? 20 Information not available 03/24/2024 Do You Or Have You Ever Used Any Other Forms Of Tobacco Or Nicotine? No Information not available 03/24/2024 Sex: Female Functional Status None recorded. Mental Status None recorded. Family History Nothing Reported. Medical History No medical history recorded. Gynecological HistoryNo gynecological history recorded. Obstetrics History GPAL:G 0 P 0 0 0 0 Past Encounters Encounter ID Performer Location Encounter Start Date Encounter Closed Date Diagnosis/Indication Diagnosis SNOMED-CT Code Diagnosis ICD10 Code Diagnosis Note [id number] CHEY RODRIGUES PA-C [address] [place] [address] 03/24/2024 15:29:47 03/24/2024 18:48:20 Allergic reaction [id number] T78.40XA Patient seem to be bitten or stung by some sort of insect when she was out mowing the lawn on Friday. She shows me a picture from Josiah evening in which the dorsal aspect of the right hand was rather red and swollen. That redness and swelling has greatly improved after 2 doses of Benadryl but now she has some swelling into the right fourth digit and along the forearm. I do not see any signs currently to suggest infectious etiology. There is no redness, warmth or red streaking. I suspect that some of this is still allergic reaction and it may help to initiate prednisone . She states she tolerates this medicine well. Does not keep her up. While here she is given 40 mg of prednisone orally and she will do a 8-day taper decreasing by 10 mg every 2 days. She is instructed to keep a log of what she took so that she is taking the right dose on the right day. I also recommend getting over-the-c ounter Zyrtec taking daily in the morning. I have placed her in a metacarpal splint to help immobilize the hand to help to continue to reduce swelling. I do recommend she wear this as often as she can. This is held in place with Jonnie wrap. I do not expect she should have any significan t sudden worsening. I do expect this should begin to improve. If it is not improving or having worsening she is encouraged to seek follow-up as needed. Patient voiced understand ing Health Concerns Section Related Observation LastModified by Organization Detai ls LastModified Time None Recorded Concern Status LastModified by Organization Details LastModified Time None Recorded Advance Directives Directive None Recorded Payers Encounter Date Sequence Insurance Name Policy Number Policy Prasad Covered Member ID Prasad Member ID Guarantor Name 03/24/2024 1 *SELF PAY* Gurdeep Carlin Notes Date Note Type Note Provider Name and Address Organization Details Recorded Time 03/24/2024 text/html Naomy is a 48-year-old female who was bitten by something on Friday when she was outside mowing the lawn on the top of the right hand. She is right-hand dominant. She notes that her right hand became red, swollen and she was taking 1 tablet of Benadryl Friday night and then again on Friday morning. This did make her somewhat drowsy. She slept most of Friday. The swelling of the hand has greatly improved but now has swelling in the right fourth digit as well as some itchiness and swelling extending into the forearm. She has not developed fevers. She has had no nausea or vomiting. Has been able to eat and drink per usual. She does not typically have reactions like this to bugs. She was concerned that this could be blood infection. CHEY RODRIGUES PA-C [address], [place], [address], [facility]. 03/24/2024 20:28:08 OBGyn Episode No OBEpisode recorded.
--- OUTSIDE RECORDS SUMMARY | 2024-11-07 19:06 | XMS_ITS | Encounter Summary ---
Author Organization [facility] Address [facility] [place] [address] Care Team Providers Care Quality Control Supervisor Name Role Phone Jaclyn Martinez APRN Primary Care Provider [phone] Encounter Details Date Type Department Care Team (Latest Contact Info) Description 06/19/2022 3:26 PM EDT - 06/19/2022 11:59 PM EDT Hospital [place] [id number] Zulma Ordoñez MD [facility] [place] [address] Abnormal finding on breast imaging Discharge Disposition: Home Social History Tobacco Use Types Packs/Day Years Used Date Smoking Tobacco: Every Day Smokeless Tobacco: Never Sex and Gender Information Value Date Recorded Sex Assigned at Not on file Gender Identity Not on file Sexual Orientation Not on file documented as of this encounter Medications at Time of Discharge Medication Sig Dispensed Refills Start Date End Date predniSONE (DELTASONE) 20 mg Tablet Daily 07/06/2019 MULTI-VITAMIN ORAL Take by mouth. hydrocortisone 2.5 % Ointment Apply to the affected areas on the 1-2 times daily for 4 weeks. 30 g 1 08/04/2019 documented as of this encounter Plan of Treatment Not on file documented as of this encounter Procedures Procedure Name Priority Date/Time Associated Diagnosis Comments MAMMO CALL BACK DIAGNOSTIC RITO WITHOUT CAD LEFT Routine 06/19/2022 3:45 PM EDT Abnormal finding on breast imaging documented in this encounter Results * Mammo Call Back Diagnostic Rito Without Cad Left (06/19/2022 3:45 PM EDT) Anatomical Region Laterality Modality Breast Left Mammography Impressions 06/19/2022 3:53 PM EDT No mammographic evidence of malignancy. Recommendation: Routine annual screening BI-RADS Category 1: Negative * ??Regular screening mammograms starting between age 40 and 50 reduces the risk of from breast cancer. * ??All screening tests have both risks and benefits. These risks and benefits should be assessed for each individual patient through discussion with their provider to determine their preferred breast cancer screening schedule. * ??Women should report any breast changes to a health care provider right away. * ??Some women, because of their family history, a genetic tendency, or other factors, should be screened with annual breast MRI as well as with mammograms. (The number of women who fall into this category is very small). Patients and health care providers should discuss each patients history to decide if earlier screening and/or breast MRI are appropriate. * ??Screening should continue as long as a woman is in good health and is expected to live 10 years or longer. * ??Screening mammography may not detect 10-15% of breast cancers. Thank you for letting us participate in the care of this patient. ??If you are a health care provider and have any questions regarding this report, please contact the number below. ??For patients who have questions please contact the health resident care spec that requested your imaging first. ? Narrative 06/19/2022 3:53 PM EDT EXAMINATION: MAMMO CALL BACK DIAGNOSTIC RITO WITHOUT CAD LEFT CLINICAL HISTORY: Abnormal finding on breast imaging TECHNIQUE: True lateral, spot compression CC and spot compression MLO views were obtained of the left breast. 2-D direct digital capture, 3-D tomosynthesis and computer aided detection (CAD) were used.. COMPARISON: This study was compared with prior images. FINDINGS: There are no suspicious masses, suspicious microcalcifications, or areas of architectural distortion. Specifically, the questioned asymmetry compresses evenly consistent with normal fibroglandular elements. Increased conspicuity most likely due to positioning and compression differences. Zulma Ordoñez MD IMG MAMMO ORDERABLES documented in this encounter Visit Diagnoses Diagnosis Abnormal finding on breast imaging Other (abnormal) findings on radiological examination of breast documented in this encounter Care Teams Quality Control Supervisor Relationship Specialty Start Date End Date Jaclyn Martinez, E [employer]CHANT [address] [place] [address] PCP - General Family Medicine 10/19/18 documented as of this encounter
--- OUTSIDE RECORDS SUMMARY | 2024-11-07 19:06 | XMS_ITS | Encounter Summary ---
Author Organization [facility] Address [facility] [place] [address] Care Team Providers Care Professional Architect Name Role Phone Jaclyn Martinez APRN Primary Care Provider Encounter Details Date Type Department Care Team (Late st Contact Info) Description 06/17/2022 9:44 AM EDT - 06/17/2022 11:59 PM EDT Hospital Encounter Mammography/[place] [phone] Jaclyn Martinez APRN [address] [place], [place] [id number] Encounter for screening mammogram for breast cancer Discharge Disposition: Home Social History Tobacco Use [...] Name Priority Date/Time Associated Diagnosis Comments MAMMO SCREENING CAD AND CHAUNCEY BILATERAL Routine 06/17/2022 10:12 AM EDT Encounter for screening mammogram for breast cancer documented in this encounter Results * Mammo Screening Cad and Chauncey Bilateral (06/17/2022 10:12 AM EDT) Anatomical Region Laterality Modality Breast Bilateral Mammography Impressions 06/17/2022 10:23 AM EDT BI-RADS CATEGORY 0: INCOMPLETE MAMMOGRAM. Needs additional imaging evaluation. RECOMMENDATION: The patient will be contacted regarding the additional imaging. Thank you for letting us participate in the care of this patient. ??If you are a health care provider and have any questions regarding this report, please contact the number below. ??For patients who have questions please contact the health care asst that requested your imaging first. ? Narrative 06/17/2022 10:23 AM EDT REASON FOR EXAM: Screening TECHNIQUE: CC and MLO views were obtained of the Bilateral breast.Computer aided detection was used. 3D tomosynthesis images were obtained in addition to 2D images. FINDINGS: Breast density:The breasts are heterogeneously dense, which may obscure small masses. Right breast. ??There are no suspicious microcalcifications, masses, or areas of distortion. No changes compared to prior studies. The Left breast is abnormal and additional imaging is required. There is a ??3 cm developing asymmetry in the upper inner quadrant of the LEFT breast, 10 cm from the nipple Jaclyn Adjovu RADIOLOGY RN IMG MAMMO ORDERABLE S documented in this encounter Visit Diagnoses Diagnosis Encounter for screening mammogram for breast cancer documented in this encounter Care Teams Professional Architect Relationship Specialty Start Date End Date Jaclyn Martinez APRN [address] [place] [address] PCP - General Family Medicine 10/19/18 documented as of this encounter
--- OUTSIDE RECORDS SUMMARY | 2024-11-07 19:06 | XMS_ITS | Clinical Summary ---
Author Organization [facility] Address [facility] [place] [address] Care Team Providers Care Veterinary Practitioner Name Role Phone Jaclyn Martinez [place] Primary Care Provider Allergies Active Allergy Reactions Criticality Noted Date Comments Cat Dander High 07/06/2019 Doxycycline 08/04/2019 Hives Medications Medication Sig Dispensed Refills Start Date End Date Status predniSONE (DELTASONE) 20 mg Tablet Daily 07/06/2019 Active MULTI-VITAMIN ORAL Take by mouth. Ac tive hydrocortisone 2.5 % Ointment Apply to the affected areas on the 1-2 times daily for 4 weeks. 30 g 1 08/04/2019 Active Active Problems No known active problems Family History Medical History Relation Comments Breast Cancer Mother Relation Status Comments Mother Social History Tobacco Use Types Packs/Day Years Used Date Smoking Tobacco: Every Day Smokeless Tobacco: Never Sex and Gender Information Value Date Recorded Sex Assigned at Not on file Gender Identity Not on file Sexual Orientation Not on file Plan of Treatment Health Maintenance Due Date Last Done Comments CT Colonography 1977 Colonoscopy 1977 Colorectal Cancer Screening 1977 FIT DNA 1977 FIT 1977 Sigmoidoscopy (10 year) with FIT yearly 1977 Sigmoidoscopy 1977 HIV screen 1995 Hepatitis C Screening 1995 Lipid Screening 1995 Hepatitis B vaccine (0-59 yrs) (1) 1996 Pneumococcal Vaccine: At-Ris k 5-64yrs (1 of 2 - PCV) 1996 Tetanus/Diphtheria/Pertussis Vaccines (1 - Tdap) 1996 HPV test 2007 PAP Smear 2007 Breast Cancer Share Decision Needed 2017 Breast Cancer screening 06/17/2024 06/17/20, 07/21/2020, 10/19/2018 Covid-19 Vaccine ( - season) 2024 Influenza (Flu) vaccine (1 o f 1 - Influenza standard series) 06/27/2024 Procedures Procedure Name Priority Date/Time Associated Diagnosis Comments MAMMO SCREENING CAD AND RITO BILATERAL Routine 06/17/2022 10:12 AM EDT Encounter for screening mammogram for breast cancer from Last 3 Months or Most Recently Relevant to Health Maintenance Results * Mammo Screening Cad and Rito Bilateral (06/17/2022 10:12 AM EDT) Anatomical Region [...] who have questions please contact the health health care coach that requested your imaging first. ? Narrative [...] breast, 10 cm from the nipple Jaclyn Morseovpatricia BI APPLICATION DEVELOPER IMG MAMMO ORDERABLE S from Last 3 Months or Most Recently Relevant to Health Maintenance Care Teams Veterinary Practitioner Relationship Specialty Start Date End Date Jaclyn Martinez APRN [address] [place], [place] [id number] PCP - General Family Medicine 10/19/18
--- OUTSIDE RECORDS SUMMARY | 2024-11-07 19:07 | XMS_ITS | Encounter Summary ---
Author Organization [facility] Address [facility] [place] [address] Care Team Providers Care Superintendent Car Construction Name Role Phone Jaclyn Martinez APRN Primary Care Provider [phone] Reason for Visit * Consultation (Routine) - Specialty Diagnoses / Procedures Referred By Liv medina Referred To Contact Dermatology Diagnoses Rash Jaclyn Martinez APRN [address] [place] [address] [facility] Dermatology [address] [place] [address] Referral ID Status Reason Start Date Expiration Date V isits Requested Visits Authorized [id number] Consult, Test & Treat PCP Updated and/or Approved 08/02/2019 08/02/2020 6 6 Encounter Details Date Type Department Care Team (Late st Contact Info) Description 08/04/2019 10:00 AM EDT Office Visit Dermatology at [facility] [address] [place] [address] Tali Lopez MD Eczema, unspecified type Social History Tobacco Use Types Packs/Day Years Used Date Smoking Tobacco: Every Day Smokeless Tobacco: Never Sex and Gender Information Value Date Recorded Sex Assigned at Not on file Gender Identity Not on file Sexual Orientation Not on file documented as of this encounter Progress Notes * Tali Lopez MD - 08/04/2019 10:00 AM EDT DERMATOLOGY OUTPATIENT CLINIC NOTE Date of service: 08/04/2019 Lady Lerma : 1975 Provider: Tali Lopez MD PROBLEM: rash SKIN HISTORY: none HPI Lady Lerma is a 43 y.o.female. New pt here for painful rash around the mouth with swelling onthe face. She mentioned this has been happing for a few months. She asked for a referral and finally got it. She has tried TAC, Benadryl OTC gel, Metronidazole lotion, but stopped because it made herface burn. She had an allergic reaction to Doxycycline. She tried hydroxyzine for awhile but did not help so she went back to the Benadryl. She was seen in [place] [facility] for hives all over. She was told she had a reaction to he Doxycycline. She was given Prednisone in the ER 3 doses and then sent home with 20 mg tabs of prednisone for 4 days total. She feels a bit better. She has stopped dryer sheets and switched all products to free and clear. Her PCP said it is nothing she is eating. She gets patches on the skin and dryness. She reports her face gets itchy, inflamed, burning and then drys upand flakes. She only uses Eucerin for the dryness. She mentioned the Vaseline, bag balm and chap stick made it worse. Used to get splotches on the top of the feet. She had allergy testing years ago. 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 Cat Dander ??? Doxycycline Hives CURRENT MEDICATIONS: Current Outpatient Medications Medication Sig Dispense Refill ??? predniSONE (DELTASONE) 20 mg Tablet Daily ??? MULTI-VITAMIN ORAL Take by mouth. No current facility-administered medications for this visit. PROBLEM LIST: There is no problem list on file for this patient. ROS General: feeling well. Oriented X 3. Skin: denies other skin complaints EXAM General: NAD, pleasant, cooperative Skin: A focused skin examination of the face, back, chest, abdomen, arms and hands significant for the following: Significant skin findings: -Periorally and eyelids: pink eczematous patches. -Right hand: xerosis with eczematous patches. -back, chest, abdomen are clear ASSESSMENT/PLAN Eczematous dermatitis - Finish out course of prednisone. Stop metro lotion and doxycycline - Start Rx: Hydrocortisone ointment. Apply to the affected areas on the face 1-2 times daily for 4 weeks. - Continue Triamcinolone cream. Apply to the hands twice daily, as needed. Patient has at home. - Heavy daily moisturizing on the hand (recommended Neutrogena [place] Hand formula) - Try to avoid Bag [place] - If no improvement with topicals, may consider patch testing. - Patient has acrylic nails, advised to try taking a break from them to see if things improve. Acrylic nails can often cause an allergic reaction. - Recommended vinegar/water spray/soak 1/1 ratio. Advised may sting, ok to add water until stingingdoes not occur. RTC - 4 weeks for a follow up on the above; sooner if needed. Appointment scheduled before exiting.Instructed patient to call with questions or concerns. As scheduled upon leaving @ 09/06/19. Note initiated and routed to physician for review and change by: ENRICO VARELA LPN I, Hanna Gonzales, Clinical Scribe have performed the documentation for this encounter in the presence of and acting as a scribe for Tali Lopez MD. I, Dr. Tali Lopez, performed the visit service though my nurse assisted me in scribing the note. I reviewed and edited this note above, a scribed service performed by my nurse. On closure of this note I agree with the accuracy of the documentation. Tali Lopez MD Section of Dermatology [facility] documented in this encounter Plan of Treatment Not on file documented as of this encounter Visit Diagnoses Diagnosis Eczema, unspecified type documented in this encounter Care Teams Superintendent Car Construction Relationship Specialty Start Date End Date Jaclyn Martinez APRN [address] [place] [address] [address] [place] [address] PCP - General Family Medicine 10/19/18 documented as of this encounter
--- OUTSIDE RECORDS SUMMARY | 2024-11-07 19:07 | XMS_ITS | Encounter Summary ---
Author Organization [facility] Address [address] [place] [address] Care Team Providers Care Muffler Installer Name Role Phone Guerita Burt MD Primary Care Provider [phone] Encounter Details Date Type Department Care Team (Late st Contact Info) Description 06/25/2018 Results Only [facility] [phone] Jaclyn Rascon, TECHNICAL SUPPORT CONSULTANT [address] [place] [address] Social History Tobacco Use Types Packs/Day Years Used Date Smoking Tobacco: Never Assessed Comments Unknown Sex and Gender Information Value Date Recorded Sex Assigned at Not on file Legal Sex Female 18:18 EST Gender Identity Not on file Sexual Orientation Not on file documented as of this encounter Plan of Treatment Not on file documented as of this encounter Procedures Procedure Name Priority Date/Time Associated Diagnosis Comments PAP TEST- RESULT ONLY Routine 06/25/2018 0:00 EDT documented in this encounter Results * PAP TEST- RESULT ONLY (06/25/2018 0:00 EDT) Pathology Report: CYTOPATHOLOGY REPORT Reports generated via electronic interface contain original data; however they are lacking the format of the original report. Caution should be taken when reading/interpreti ng unformatted reports. Name: ? LADY CASTANEDA ? Accession #: ? [id number] ? : ? 1975 (Age: 42) ??F ?Collect Date: ? 06/25/2018 ? Location: ? [facility] ? Receive Date: ? 06/26/2018 ? Provider: JACLYN RASCON TECHNICAL SUPPORT CONSULTANT Copy to: ? Final Report SPECIMEN ADEQUACY ? Satisfactory for Evaluation - transformation zone component present GENERAL CATEGORIZATION ? Negative for Intraepithelial Lesion or Malignancy INTERPRETATION ? Shift in eder present suggestive of bacterial vaginosis. Last Menstrual Period: 05/30/2018 Specimen/Source: ??Pap Test, Cervix, ThinPrep Imaging System with manual evaluation Document reviewed and electronically signed by: ? NEHA Howe(ASCP) ? Report ??Date: 07/06/2018 14:04 HPV with Pap Test ? Date Ordered: ? 07/06/2018 ? Status: ?? Signed Out ?Date Complete: ? 07/07/2018 ? By: ??System Interface ? Date Reported: ? 07/07/2018 ? Interpretation RESULT: Negative for HPV. No E6 or E7 mRNA is detected from HPV types 16,18,31,33,35, 39,45,51,52,56,58, 59,66, and 68 by lift team technician mediated amplification. Comments Document reviewed and electronically signed by: ? System Interface ? Report date: 07/07/2018 By the signature above, the attending physician certifies that he/she has personally conducted a gross and/or microscopic examination of the described specimens and rendered or confirmed the above diagnosis. End of Report [facility] 06/25/2018 06/26/2018 us Jaclyn Adjovu TECHNICAL SUPPORT CONSULTANT PATHOLOGY ORDERABLES Final Re sult [facility] [address] [place] [address] documented in this encounter Visit Diagnoses Not on filedocumented in this encounter Care Teams Muffler Installer Relationship Specialty Start Date End Date Guerita Burt MD PCP - General 03/08/15 documented as of this encounter
--- OUTSIDE RECORDS SUMMARY | 2024-11-07 19:07 | XMS_ITS | Encounter Summary ---
Author Organization [place] [address] Care Team Providers Care Yarder Engineer Name Role Phone Jaclyn Martinez APRN Primary Care Provider [phone] Encounter Details Date Type Department Care Team (Late st Contact Info) Description 10/15/2018 12:30 AM EST Ancillary Procedure Radiology Library at [facility] [place] [address] [place] [address] Jaclyn Martinez APRN [address] [place] [address] Abnormal mammogram of left breast Social History Tobacco Use Types Packs/Day Years Used Date Smoking Tobacco: Never Assessed Sex and Gender Information Value Date Recorded Sex Assigned at Not on file Gender Identity Not on file Sexual Orientation Not on file documented as of this encounter Plan of Treatment Not on file documented as of this encounter Procedures Procedure Name Priority Date/Time Associated Diagnosis Comments REQUEST FOR 2ND READ MAMMO Routine 10/14/2018 6:20 PM EST Abnormal mammogram of left breast documented in this encounter Results * Request for 2nd read Mammo (10/14/2018 6:20 PM EST) Anatomical Region Laterality Modality SO Impressions 10/15/2018 10:39 AM EST Impression: Insufficient imaging in terms of lack of right breast mammogram in 42-year-old patient with family history of breast cancer, lack of application of a marker to the left breast site of clinical concern, and in our opinion no evidence of underlying distortion. Recommendation: Reconcile location of left breast lump versus pain. Repeat left breast mammogram with a marker and perform right breast mammogram. Directed ultrasound of left breast. Pse note: The interpretation of the [facility] Breast Imaging Radiologist subspecialist may differ from the original radiologists interpretation. This is usually not due to a deficiency of the original interpreting radiologist, rather due to the greater skill level afforded by sub-specialization in the field and/or reasonable variations in interpretations. If you have a concern regarding the D-H interpretation you may contact the [facility] Breast Assembly Line Worker Office at . I have personally reviewed the image(s) and the residents interpretation and agree with the findings, Hanna Garner at 10/15/2018 10:39 AM Narrative 10/15/2018 10:39 AM EST INTERPRETATION OF OUTSIDE BREAST IMAGING I have been asked to consult on this patient by Dr. Jaclyn Martinez because he/she believes a review of this study may change or alter the care of this patient. STUDIES FROM: [facility] DATES: 10/14/2018 TYPE OF EXAM: Diagnostic mammographic images of the left breast with Tomosynthesis including MLO, CC, MLO spot compression and CC compression views. High-resolution ultrasound. CLINICAL HISTORY: LEFT BREAST DISTORTION, CAT 4; ?BX, ?MORE IMAGING; What Modality is the exam? Mammography; Body Part (please add comments as necessary): LEFT BREAST; I believe a reinterpretation of this exam may alter care of Patient Yes. Our review of the documents suggests that there is an unspecified lump in the left breast lower outer quadrant and also a lump left axilla for the past 1.5 weeks. The physical examination suggested a focal breast mass that is not clearly defined and nonmobile tender to palpation. There is no right breast mammogram. The left breast mammogram was performed without a marker to direct interpretation and correlation with a breast physical exam finding. COMPARISONS: None TECHNIQUE: Diagnostic mammographic images of the left breast with Tomosynthesis including MLO, CC, MLO spot compression and CC compression views. High-resolution ultrasound. Please note: Breast ultrasound is resaw carriage operator dependent. Complete assessment of the breast tissue is not possible through static images or cine loops. Because breast ultrasound is a dynamic process the interpretive value of outside images is limited. Findings:: The breast is heterogeneously dense, which may obscure small masses. There are no suspicious masses, suspicious microcalcifications, or areas of architectural distortion. The additional diagnostic images of the left breast using spot compression technique fail to demonstrate any suspicious distortion. Left breast ultrasound: Static images from the upper outer quadrant performed in a nondirected fashion fail to depict any evidence of underlying lesion. Procedure Note Hanna Garner MD - 10/15/2018 INTERPRETATION OF OUTSIDE BREAST IMAGING I have been asked to consult on this patient by Dr. Jaclyn Ragsdaleuse he/she believes a review of this study may change or alter the care ofthis patient. STUDIES FROM: [facility] DATES: 10/14/2018 TYPE OF EXAM: Diagnostic mammographic images of the left breast with Tomosynthesis including MLO, CC, MLO spot compression and CC compressionviews. High-resolution ultrasound. CLINICAL HISTORY: LEFT BREAST DISTORTION, CAT 4; ?BX, ?MORE IMAGING;What Modality is the exam? Mammography; Body Part (please add comments asnecessary): LEFT BREAST; I believe a reinterpretation of this exam may alter care ofPatient Yes. Our review of the documents suggests that there is an unspecified lump inthe left breast lower outer quadrant and also a lump left axilla for thepast 1.5 weeks. The physical examination suggested a focal breast mass that isnot clearly defined and nonmobile tender to palpation. There is no rightbreast mammogram. The left breast mammogram was performed without a marker todirect interpretation and correlation with a breast physical exam finding. COMPARISONS: None TECHNIQUE: Diagnostic mammographic images of the left breast withTomosynthesis including MLO, CC, MLO spot compression and CC compression views. High-resolution ultrasound. Please note: Breast ultrasound is resaw carriage operator dependent. Complete assessmentof the breast tissue is not possible through static images or cine loops.Because breast ultrasound is a dynamic process the interpretive value of outsideimages is limited. Findings:: The breast is heterogeneously dense, which may obscure smallmasses. There are no suspicious masses, suspicious microcalcifications, or areasof architectural distortion. The additional diagnostic images of the leftbreast using spot compression technique fail to demonstrate any suspiciousdistortion. Left breast ultrasound: Static images from the upper outer quadrantperformed in a nondirected fashion fail to depict any evidence of underlying lesion. IMPRESSION Impression: Insufficient imaging in terms of lack of right breast mammogram [id number] patient with family history of breast cancer, lack of application of amarker to the left breast site of clinical concern, and in our opinion no evidenceof underlying distortion. Recommendation: Reconcile location of left breast lump versus pain. Repeat left breast mammogram with a marker and perform right breastmammogram. Directed ultrasound of left breast. Pse note: The interpretation of the [facility] Breast Imaging Radiologist subspecialist may differ from the original radiologists interpretation. This is usually not due to a deficiency of the original interpreting radiologist, rather due to the greater skill level affordedby sub-specialization in the field and/or reasonable variations ininterpretations. If you have a concern regarding the D-H interpretation [facility] Work[facility] at . I have personally reviewed the image(s) and the residents interpretationand agree with the findings, Hanna Garner at 10/15/2018 10:39 AM 10:39 AM Jaclyn Martinez APRN IMG OUTSIDE INTERPR ETATION ORDERABLES documented in this encounter Visit Diagnoses Diagnosis Abnormal mammogram of left breast documented in this encounter Care Teams Yarder Engineer Relationship Specialty Start Date End Date Jaclyn Martinez APRN [address] [place] [address] PCP - General Family Medicine 10/19/18 documented as of this encounter
--- OUTSIDE RECORDS SUMMARY | 2024-11-07 19:07 | XMS_ITS | Encounter Summary ---
Author Organization [facility] [place] [address] Care Team Providers Care Boat Cleaner Name Role Phone Jaclyn Martinez APRN Primary Care Provider [phone] Reason for Visit * Consultation (Routine) - Closed Specialty Diagnoses / Procedures Referred By Liv medina Referred To Contact Dermatology Diagnoses Disorder of the skin and subcutaneous tissue, unspecified L torso lesion Ana María Mckeon, SLURRY CONTROL OPERATOR HELPER [address] [place] [address] [facility] [address] [place] [address] Referral ID Status Reason Start Date Expiration Date V isits Requested Visits Authorized [id number] Closed Consult, [facility] PCP Updated and/or Approved 06/25/2021 06/25/2022 6 6 Encounter Details Date Type Department Care Team (Late st Contact Info) Description 06/17/2022 8:40 AM EDT Office Visit Dermatology at [facility] [address] [place] [address] Reyna Painting MD SK (seborrheic keratosis) Social History Tobacco Use Types Packs/Day Years Used Date Smoking Tobacco: Every Day Smokeless Tobacco: Never Sex and Gender Information Value Date Recorded Sex Assigned at Not on file Gender Identity Not on file Sexual Orientation Not on file documented as of this encounter Progress Notes * Reyna Painting MD - 06/17/2022 8:40 AM EDT Images from the original note were not included. DEPARTMENT OF DERMATOLOGY Medical Dermatology Clinic Note Provider: Reyna Painting MD Patient's preferred name Lady Preferred contact method for results []Phone []myD-H []Letter Detailed phone message OK? Are there any other people with whom we may discuss your care? Past Medical History Date, location, treatment Melanoma N Dysplastic nevi ? Spot biopsied on left flank in 2011, unsure of results SCC N BCC N AKs N UV Exposure & Protection Other relevant past medical history Eczema Family History Details Melanoma N NMSC N Other relevant family history + Psoriasis; 2 sisters Social History Occupation: Hobbies: Other: Pre-Procedure Questions Details Allergy to lidocaine, epinephrine, Dermabond, chlorhexidine, or adhesives Bleeding disorder or blood thinners Implanted devices (Pacemaker, defibrillator, deep brain stimulator, cochlear implant) History of Present Illness: Lady Lerma is a 46 y.o. Patient is referred to the clinic at the request of Ana María Mckeon for a mole -Patient states a few years ago she had a mole removed that she was told was told could have been pre melanoma. She states the mole has since grown back. -Biopsy done in [place], [place] -Started as two small moles that conjoined. Review of Systems: General: Feeling well. Skin: No other skin concerns. Medications: Reviewed in eD-H Allergies: Reviewed in eD-H Skin Examination: Focused skin examination of the left flank was normal with the exception of the findings below. Assessment/Plan #. Seborrheic Keratosis - Stuck on, waxy papules on the left flank in inferior border of the tattoo, no visible scar - pt reports that is the same area her prior lesion was biopsied and grew back - Discussed benign nature of lesions and provided reassurance. No treatment necessary at this time. - recommend sun protection with SPF 30+, will bring pt back for FSE Figure 1 Picture taken with patients permission RTC: FSE when convenient for patient scheduled at checkout []Note routed to brake repairer air []Recall placed in scheduling system [x]Appointment scheduled at checkout Scribe attestation: Hoda Aldana MA has performed the documentation for this encounter in the presence of and acting as a scribe for Reyna Painting MD. I performed the above scribed service and agree with the accuracy of the documentation in this encounter. Reviewed and signed by: Reyna Painting MD [facility] Patient seen and evaluated with staff event lighting specialist: Antony Scanlon MD Department of D[facility] * Antony Scanlon MD - 06/17/2022 8:40 AM EDT I directly supervised Dr. Painting in the care of this patient. I saw and evaluated this patient with Dr. Painting She presented the history and physical exam details to me, then we saw the patient together and I confirmed these findings. I agree with details as written. My physical examination confirms her findings. The assessment and plan were formulated in discussion with me at the time of visit and I agree withthem as documented. Antony Scanlon MD FAAD Staff Physician Department of Dermatology documented in this encounter Plan of Treatment Not on file documented as of this encounter Visit Diagnoses Diagnosis SK (seborrheic keratosis) Other seborrheic keratosis documented in this encounter Care Teams Boat Cleaner Relationship Specialty Start Date End Date Jaclyn Martinez APRN [address] [place] [address] [address] [place] [address] PCP - General Family Medicine 10/19/18 documented as of this encounter
--- OUTSIDE RECORDS SUMMARY | 2024-11-07 19:07 | XMS_ITS | Encounter Summary ---
Author Organization [facility] [place] [address] Care Team Providers Care Certified Mortician Name Role Phone Jaclyn Martinez APRN Primary Care Provider Encounter Details Date Type Department Care Team (Late st Contact Info) Description 07/21/2020 10:50 AM EDT - 07/21/2020 11:59 PM EDT Hospital Encounter Mammography/[place] [address] Jaclyn Martinez APRN [address] [place] [address] Visit for screening mammogram Discharge Disposition: Home Social History Tobacco Use [...] MAMMO SCREENING CAD AND RITO BILATERAL Routine 07/21/2020 11:05 AM EDT Visit for screening mammogram documented in this encounter Results * Mammo Screening Cad and Rito Bilateral (07/21/2020 11:05 AM EDT) Anatomical Region Laterality Modality Breast Bilateral Mammography Narrative 07/21/2020 11:16 AM EDT Bilateral mammography Reason for exam: ROUTINE MAMMO; LAST MAMMO 07/01/19 Technique: CC and MLO views were obtained of each breast using standard 2-D mammography as well as 3-D tomosynthesis. Computer aided detection was used. Comparison: This is compared with prior images. Findings: The breasts are heterogeneously dense, which may obscure small masses. There are no suspicious microcalcifications, masses, or areas of distortion. The pattern is stable. Stable benign-appearing bilateral focal asymmetries. Conclusion: No mammographic evidence of malignancy. Recommendation: Routine screening. BI-RADS Category 2: Benign findings. * ??Regular screening mammograms starting between age [...] participate in the care of this patient. For questions regarding this report, please contact the number below. ? Jaclyn Martinez APRN IMG MAMMO ORDERABLE S documented in this encounter Visit Diagnoses Diagnosis Visit for screening mammogram Other screening mammogram documented in this encounter Care Teams Certified Mortician Relationship Specialty Start Date End Date Jaclyn Martinez APRN [address] [place] [address] PCP - General Family Medicine 10/19/18 documented as of this encounter
--- OUTSIDE RECORDS SUMMARY | 2024-11-07 19:07 | XMS_ITS | Clinical Summary ---
Author Organization [facility] Address [address] [place] [id number] Care Team Providers Care Check Out Cashier Name Role Phone Guerita Burt MD Primary Care Provider [phone] Social History Tobacco Use Types Packs/Day Years Used Date Smoking Tobacco: Never Assessed Comments Unknown Sex and Gender Information Value Date Recorded Sex Assigned at Not on file Legal Sex Female 18:18 EST Gender Identity Not on file Sexual Orientation Not on file Plan of Treatment Health Maintenance Due Date Last Done Comments Hepatitis C Screen 1975 Hepatitis B Vaccine (1 of 3 - 19+ 3-dose series) 11/30 COVID-19 Vaccine ( season) 2024 Care Teams Check Out Cashier Relationship Specialty Start Date End Date Guerita Burt MD PCP - General 03/08/15
--- OUTSIDE RECORDS SUMMARY | 2024-11-07 19:07 | XMS_ITS | Referral Summary ---
Author Organization [facility] Address [address] [place] [address] Care Team Providers Care Medical Director Of Hospice Name Role Phone Guerita Burt MD Primary Care Provider [phone] Social History Tobacco Use Types Packs/Day Years Used Date Smoking Tobacco: Never Assessed Comments Unknown Sex and Gender Information Value Date Recorded Sex Assigned at Not on file Legal Sex Female 18:18 EST Gender Identity Not on file Sexual Orientation Not on file Plan of Treatment Not on file Care Teams Medical Director Of Hospice Relationship Specialty Start Date End Date Guerita Burt MD PCP - General 03/08/15
--- OUTSIDE RECORDS SUMMARY | 2024-11-07 19:07 | XMS_ITS | Encounter Summary ---
Author Organization [facility] Address [address] [place] [address] Care Team Providers Care Inspector Pawnshop Detail Name Role Phone Unavailable Primary Care Provider Unavailabl e Encounter Details Date Type Department Care Team (Late st Contact Info) Description 02/14/2006 Results Only [facility] [place] - [facility] [address] [place] [address] Fanta Mina MD [address] [place] [address] [id number] [place] [address] Social History Tobacco Use Types Packs/Day Years [...] Procedure Name Priority Date/Time Associated Diagnosis Comments CYTOPATHOLOGY Routine 02/14/2006 0:00 EDT documented in this encounter Results * CYTOPATHOLOGY (02/14/2006 0:00 EDT) Pathology Report: CYTOPATHOLOGY REPORT Reports generated via electronic interface contain original data; however they are lacking the format of the original report. Caution should be taken when reading/interpreti ng unformatted reports. Name: ? FLORENTIN LADY Lunsford ? Accession #: ? [id number] : ? 1975 (Age: 30) ??F ?Collect Date: ? 02/14/2006 Location: ? [facility] ? Receive Date: ? 02/18/2006 Provider: ?FANTA MINA MD Copy to: ? Specimen/Source: ?ThinPrep Pap Test, Vagina/Cervix/Endo cervix, processed on ABS ThinPrep Imaging System, with manual evaluation Last Menstrual Period: ? 02/07/06 Treatment History: ? LEEP: 1996 Miscellaneous treatment: 2 C-Sections, 2002 uterine puncture following infection Other: ? Additional clinical information: Previous atypical HPVA - HPV testing requested if ASC-US on the current ThinPrep Pap test. ? SPECIMEN ADEQUACY ? Satisfactory for Evaluation - transformation zone component present GENERAL CATEGORIZATION ? Negative for Intraepithelial Lesion or Malignancy INTERPRETATION ? Reactive cellular changes associated with inflammation present (includes repair). ? Document reviewed and electronically signed by: ? GUY PAREKH MD [facility] ? Report Date: ??02/24/2006 16:58 End of Report [facility] 02/14/2006 02/18/2006 us Fanta Mina MD PATHOLOGY ORDERABLES Final Resu lt [facility] [address] [place] [address] documented in this encounter Visit Diagnoses Not on filedocumented in this encounter
--- OUTSIDE RECORDS SUMMARY | 2024-11-07 19:07 | XMS_ITS | Encounter Summary ---
Author Organization [facility] [place] [address] Care Team Providers Care Optical Glass Inspector Name Role Phone Jaclyn Martinez APRN Primary Care Provider [phone] Encounter Details Date Type Department Care Team (Latest Contact Info) Description 10/19/2018 11:07 AM EST - 10/19/2018 11:59 PM EST Hospital [place] [address] Hanna Garner MD [facility] [place] [address] Abnormal finding on breast imaging Discharge Disposition: [...] Name Priority Date/Time Associated Diagnosis Comments MAMMO BREAST US LIMITED LEFT Routine 10/19/2018 11:33 AM EST Abnormal finding on breast imaging documented in this encounter Results * US Breast Limited Left (10/19/2018 11:33 AM EST) Anatomical Region Laterality Modality Breast Left Mammography Impressions 10/19/2018 11:39 AM EST IMPRESSION: No mammographic or directed ultrasound evidence of malignancy with attention to the left upper outer quadrant, axillary tail and axilla. In this patient who has a first-degree relative with possible premenopausal breast cancer consider supplemental screening with breast MRI in addition to annual mammographic screening. BI-RADS Category 1: Negative * ??Medical organizations agree that annual screening mammography beginning at age 40 saves the most lives. * ??The risks of screening are negligible compared to dying from breast cancer or suffering from more aggressive treatment required when detected at a later stage. * ??No woman is at low risk for breast cancer. * ??Some women, because of their family history, a genetic tendency, or certain other factors, should be screened with breast MRI along with mammograms. (The number of women who fall into this category is very small). The patient and health care provider should discuss the patient history and decide if earlier screening and breast MRI are appropriate. * ??Screening should continue as long as a woman is in good health and is expected to live 10 years or longer. * ??Screening mammography may not detect 10-15% of breast cancers. * ??Women should report any breast changes to a health care provider right away. Narrative 10/19/2018 11:39 AM EST EXAMINATION: MAMMO DIAGNOSTIC CAD AND CHAUNCEY BILATERAL, US ??BREAST LIMITED LEFT CLINICAL HISTORY: abnormal mammo from [facility] TECHNIQUE: CC and MLO views were obtained of each breast. 2-D and 3- D tomosynthesis images were obtained. Computer aided detection was used. Imaging was performed with a metallic marker applied to the area of pain in the left upper outer quadrant. The patient also describes generalized pain that extends from the 4:00 through the 1:00 radii of the left breast. I performed high-resolution ultrasound following the technologist. COMPARISON: This is correlated with outside breast imaging 10/14/2018 FINDINGS: The breasts are heterogeneously dense, which may obscure small masses. There are no suspicious masses, suspicious microcalcifications, or areas of architectural distortion. Specifically there is no suspicious architectural distortion in the left upper outer breast. I performed high-resolution ultrasound following the technologist of the 4:00 through 11:00 radii as well as the left axilla. There is no evidence of discrete solid lesion, abnormal acoustical shadowing, or cyst. There is no axillary adenopathy. Hanna Garner MD IMG MAMMO ORDERABL ES documented in this encounter Visit Diagnoses Diagnosis Abnormal finding on breast imaging Other (abnormal) findings on radiological examination of breast documented in this encounter Care Teams Optical Glass Inspector Relationship Specialty Start Date End Date Jaclyn Martinez APRN [address] [facility] [address] [place] [address] PCP - General Family Medicine 10/19/18 documented as of this encounter
--- OUTSIDE RECORDS SUMMARY | 2024-11-07 19:07 | XMS_ITS | Encounter Summary ---
Author Organization [facility] Address [address] [place] [address] Care Team Providers Care Stone Splitter Name Role Phone Unavailable Primary Care Provider Unavailabl e Encounter Details Date Type Department Care Team (Late st Contact Info) Description 08/13/2012 Results Only [facility] Laboratory Services - [facility] ([facility] [place] [place] [address] [place] [id number] Nancy Granado MD [address] [place] [address] Social History Tobacco Use Types Packs/Day Years [...] Diagnosis Comments PAP TEST- RESULT ONLY Routine 08/13/2012 0:00 EDT documented in this encounter Results * PAP TEST- RESULT ONLY (08/13/2012 0:00 EDT) Pathology Report: CYTOPATHOLOGY REPORT Reports generated via electronic interface contain original data; however they are lacking the format of the original report. Caution should be taken when reading/interpreti ng unformatted reports. Name: ? LADY LERMA ? Accession #: ? [id number] : ? 1975 (Age: 36) ??F ?Collect Date: ? 08/13/2012 Location: ? [facility] ? Receive Date: ? 08/17/2012 Provider: ?NANCY GRANADO MD Copy to: ? Specimen/Source: ?Pap Test, Cervix/Endocervix, ThinPrep Imaging System with manual evaluation Last Menstrual Period: ? 07/30/2012 Treatment History: ? LEEP: AGE 18 but all subsequent normal ? SPECIMEN ADEQUACY ? Satisfactory for Evaluation - transformation zone component absent GENERAL CATEGORIZATION ? Negative for Intraepithelial Lesion or Malignancy INTERPRETATION ? Shift in eder present suggestive of bacterial vaginosis. ? Document reviewed and electronically signed by: ? Cuba Hay, NEHA(ASCP) ? Report Date: ??08/20/2012 16:09 End of Report [facility] 08/13/2012 08/17/2012 Nancy Granado MD PATHOLOGY ORDERABLES Final Result [facility] [address] [place] [address] documented in this encounter Visit Diagnoses Not on filedocumented in this encounter
--- OUTSIDE RECORDS SUMMARY | 2024-11-07 19:07 | XMS_ITS | Encounter Summary ---
Author Organization [facility] Address [address] [place] [address] Care Team Providers Care Seed And Fertilizer Specialist Name Role Phone Unavailable Primary Care Provider Unavailabl e Encounter Details Date Type Department Care Team (Late st Contact Info) Description 03/03/2015 Results Only [facility] [phone] Maribell Ordonez MD [address] [address] Social History Tobacco Use Types Packs/Day Years [...] Procedure Name Priority Date/Time Associated Diagnosis Comments SURGICAL PATHOLOGY Routine 03/03/2015 17 :55 EDT documented in this encounter Results * SURGICAL PATHOLOGY (03/03/2015 17:55 EDT) Pathology Report: SURGICAL PATHOLOGY REPORT Reports generated via electronic interface contain original data; however they are lacking the format of the original report. Caution should be taken when reading/interpreti ng unformatted reports. Name: ? TONYALADY ? Accession #: ? [id number] ? : ? 1975 (Age: 39) ??F ? Collect Date: ? 03/03/2015 ? Location: ? [facility] ? Receive Date: ? 03/06/2015 ? Provider: MARIBELL PRETTY MD Copy to: ? Final Pathologic Diagnosis: SKIN OF FLANK, LEFT, SHAVE BIOPSY: - Seborrheic keratosis, pigmented. - Exogenous dermal pigment, morphologically consistent with tattoo. Document reviewed and electronically signed by: SNEHAL PARRA MD Report ??Date: 03/08/2015 14:41 By the signature above, the attending physician certifies that he/she has personally conducted a gross and/or microscopic examination of the described specimens and rendered or confirmed the above diagnosis. Specimen(s) Received: Left flank skin lesion shave bx Clinical History: Left flank mole increasing in size; no itching; no bleeding; no family h/o skin CA; skin lesion atop a tattoo; 5.0 x 3.0 mm with darkened spot measuring 3.0 x 1.0 mm; clinical diagnosis code: 709.9, 709.0 Gross Description: ? Received in formalin labelled with proper patient identification (initials F, H) and left flank skin lesion is a shave biopsy of a verrucoid friable papule (0.7 x 0.4 x 0.1 cm). ??The specimen is trisected and entirely submitted in 1. Ozzie Kuhn 03/07/2015 10:45 AM End of Report [facility] 03/03/2015 17:5 5 EDT 03/06/2015 17:55 EDT us Maribell Ordonez MD PATHOLOGY ORDERABLES Final Res ult [facility] [address] [place] [address] documented in this encounter Visit Diagnoses Not on filedocumented in this encounter
--- OUTSIDE RECORDS SUMMARY | 2024-11-07 19:07 | XMS_ITS | Encounter Summary ---
Author Organization [facility] [address] Care Team Providers Care Front End Engineer Name Role Phone Solomon Choi APRN Primary Care Provide r Unavailable Encounter Details Date Type Department Care Team (Late st Contact Info) Description 10/14/2018 6:25 PM EST Ancillary Procedure Radiology Library at [facility] [place] [address] Juan, ORVILLE Anaya [address] [place], [place] [id number] Social History Tobacco Use Types Packs/Day Years Used Date Smoking Tobacco: Never Assessed Sex and Gender Information Value Date Recorded Sex Assigned at Not on file Gender Identity Not on file Sexual Orientation Not on file documented as of this encounter Plan of Treatment Not on file documented as of this encounter Procedures Procedure Name Priority Date/Time Associated Diagnosis Comments FILM LIBRARY STORAGE ONLY MAMMO Routine 10/14/2018 6:18 PM EST documented in this encounter Results * Film Library- Storage Only Mammo (10/14/2018 6:18 PM EST) Narrative [facility] - 10/14/2018 6:18 PM EST This exam is for storage only and is auto-finalizing. Jaclyn Adjovu VOLUNTEER SERVICES SPECIALIST IMG FILM LIBRARY OR DERABLES [place], [place] documented in this encounter Visit Diagnoses Not on filedocumented in this encounter Care Teams Front End Engineer Relationship Specialty Start Date End Date Solomon Choi APRN PCP - General 11/21/11 10/18/18 documented as of this encounter
--- OUTSIDE RECORDS SUMMARY | 2024-11-07 19:07 | XMS_ITS | Encounter Summary ---
Author Organization [facility] [place] [address] Care Team Providers Care Regional Production Manager Name Role Phone Solomon Choi APRN Primary Care Provide r Unavailable Encounter Details Date Type Department Care Team (Late st Contact Info) Description 01/14/2012 Abstract [place] [address] Chencho Velasquez MD [facility] [place] [address] Social History Tobacco Use Types Packs/Day Years Used Date Smoking Tobacco: Never Assessed Sex and Gender Information Value Date Recorded Sex Assigned at Not on file Gender Identity Not on file Sexual Orientation Not on file documented as of this encounter Plan of Treatment Not on file documented as of this encounter Visit Diagnoses Not on filedocumented in this encounter Care Teams Regional Production Manager Relationship Specialty Start Date End Date Solomon Choi APRN PCP - General 11/21/11 10/18/18 documented as of this encounter
--- OUTSIDE RECORDS SUMMARY | 2024-11-07 19:07 | XMS_ITS | Encounter Summary ---
Author [facility] [place] [address] Care Team Providers Care Phlebotomist Name Role Phone Jaclyn Martinez APRN Primary Care Provider [phone] Encounter Details Date Type Department Care Team (Latest Contact Info) Description 10/19/2018 11:00 AM EST - 10/19/2018 11:06 AM EST Hospital [place] [address] Hanna Garner MD [facility] [place] [address] Abnormal finding on breast imaging Discharge Disposition: [...] Name Priority Date/Time Associated Diagnosis Comments MAMMO DIAGNOSTIC CAD AND CHAUNCEY BILATERAL Routine 10/19/2018 11:20 AM EST Abnormal finding on breast imaging documented in this encounter Results * Mammo Diagnostic CAD and Chauncey Bilateral (10/19/2018 11:20 AM EST) Anatomical Region Laterality Modality Breast Bilateral Mammography Impressions 10/19/2018 11:39 AM EST IMPRESSION: [...] breast documented in this encounter Care Teams Phlebotomist Relationship Specialty Start Date End Date Jaclyn Martinez APRN [address] [facility] [address] [place] [address] PCP - General Family Medicine 10/19/18 documented as of this encounter
--- OUTSIDE RECORDS SUMMARY | 2024-11-07 19:07 | XMS_ITS | Encounter Summary ---
Author Organization [facility] [place] [address] Care Team Providers Care Grease Monkey Name Role Phone Solomon Choi APRN Primary Care Provide r Unavailable Encounter Details Date Type Department Care Team (Late st Contact Info) Description 10/14/2018 6:20 PM EST Ancillary Procedure Radiology Library at [facility] [place] [address] Juan, ORVILLE Anaya [address] [place], [place] [id number] Social History Tobacco Use Types Packs/Day Years Used Date Smoking Tobacco: Never Assessed Sex and Gender Information Value Date Recorded Sex Assigned at Not on file Gender Identity Not on file Sexual Orientation Not on file documented as of this encounter Plan of Treatment Not on file documented as of this encounter Procedures Procedure Name Priority Date/Time Associated Diagnosis Comments FILM LIBRARY-STORAGE ONLY US BREAST Routine 10/14/2018 6:17 PM EST documented in this encounter Results * Film Library Storage Only US Breast (10/14/2018 6:17 PM EST) Narrative [facility] - 10/14/2018 6:17 PM EST This exam is for storage only and is auto-finalizing. Jaclyn Adjovu GAS FITTER APPRENTICE IMG FILM LIBRARY OR DERABLES [place], [place] documented in this encounter Visit Diagnoses Not on filedocumented in this encounter Care Teams Grease Monkey Relationship Specialty Start Date End Date Solomon Choi APRN PCP - General 11/21/11 10/18/18 documented as of this encounter
--- OUTSIDE RECORDS SUMMARY | 2024-11-07 19:07 | XMS_ITS | Encounter Summary ---
[place] [address] Care Team Providers Care Electric Shipyard Operator Name Role Phone Solomon Choi Onesimo JACINTO Primary Care Provide r Unavailable Encounter Details Date Type Department Care Team (Late st Contact Info) Description 12/13/2010 Orders [place] [address] Williams Nina MD Social History Tobacco Use Types Packs/Day Years [...] Associated Diagnosis Comments FILM LIBRARY STORAGE ONLY DX LOWER EXTREMITY Routine 12/13/2010 9:55 AM EST documented in this encounter Results * FILM LIBRARY- STORAGE ONLY DX LOWER EXTREMITY (12/13/2010 9:55 AM EST) 12/13/2010 9:55 AM EST Narrative RAD - 03/22/2014 1:44 PM EDT This is a non-reportable exam. Procedure Note [facility] - 03/22/2014 This is a non-reportable exam. Williams Nina MD IMG FILM LIBRARY ORD ERABLES [facility] [address] [facility] [place] [address] documented in this encounter Visit Diagnoses Not on filedocumented in this encounter Care Teams Electric Shipyard Operator Relationship Specialty Start Date End Date Solomon Choi APRN PCP - General 11/21/11 10/18/18 documented as of this encounter
--- OUTSIDE RECORDS SUMMARY | 2024-11-07 19:07 | XMS_ITS | Encounter Summary ---
Author Organization [facility] Address [address] [place] [address] Care Team Providers Care Retail Wireless Associate Name Role Phone Unavailable Primary Care Provider Unavailabl e Encounter Details Date Type Department Care Team (Latest Contact Info) Description 03/03/2015 13:28 EDT - 03/03/2015 23:59 EDT Hospital Encounter [address] [address] Unknown, Provider, MD Discharge Disposition: Home or Self Care Social History Tobacco Use Types Packs/Day Years Used Date Smoking Tobacco: Never Assessed Comments Unknown Sex and Gender Information Value Date Recorded Sex Assigned at Not on file Legal Sex Female 18:18 EST Gender Identity Not on file Sexual Orientation Not on file documented as of this encounter Discharge Disposition Disposition Code Departure Means Destination Home or Self Long-Term documented in this encounter Plan of Treatment Not on file documented as of this encounter Visit Diagnoses Not on filedocumented in this encounter
--- OUTSIDE RECORDS SUMMARY | 2024-11-07 19:07 | XMS_ITS | Encounter Summary ---
Author Organization [facility] Address [address] [place] [address] Care Team Providers Care Civil Engineer Helper Name Role Phone Unavailable Primary Care Provider Unavailabl e Encounter Details Date Type Department Care Team (Late st Contact Info) Description 07/31/2006 Results Only [facility] [address] [place] [address] Tom Araujo MD [address] [place] [address] Social History Tobacco Use Types Packs/Day Years [...] Date/Time Associated Diagnosis Comments SURGICAL PATHOLOGY Routine 07/31/2006 0:00 EDT documented in this encounter Results * SURGICAL PATHOLOGY (07/31/2006 0:00 EDT) Pathology Report: SURGICAL PATHOLOGY REPORT Reports generated via electronic interface contain original data; however they are lacking the format of the original report. Caution should be taken when reading/interpreting unformatted reports. Name: ? LADY CASTANEDA ? Accession #: ? [id number] ? : ? 1975 (Age: 30) ??F ? Collect Date: ? 07/31/2006 ? Location: ? [facility] ? Receive Date: ? 07/31/2006 ? Provider: TOM ARAUJO MD Copy to: GABE CONLEY MD ? Final Pathologic Diagnosis: A. ?Endometrium, curettage: 1. ?Inactive endometrium with pseudodecidualization consistent with exogenous ? hormone effect. 2. ?No hyperplasia identified. B. ?Appendix, appendectomy: 1. ?Appendix with focal acute inflammation of the superficial mucosa. See comment. Comment: ? Sections of appendix show mild neutrophilic inflammation which is restricted to the very superficial portion of the mucosa. ??The clinical significance of this degree of inflammation is uncertain. ??Correlation with the clinical impression is necessary. ??(Dr. Cuevas[place] [place] reviewed and electronically signed by: PORFIRIO CUEVAS MD Report ??Date: 08/05/2006 10:56 By the signature above, the attending physician certifies that he/she has personally conducted a gross and/or microscopic examination of the described specimens and rendered or confirmed the above diagnosis. Specimen(s) Received: A. ?Endometrial curetting B. ? Appendix Clinical History: ? On Depo-Provera. ??Menorrhagia, RLQ pain. ??S/O x2 with postop pelvic infection after 1st one. ??LMP 2 wks. Gross Description: ? Received in formalin labelled Florentin and Jonn ??endometrial curetting is 1 cc of beebe and brown hemorrhagic tissue submitted entirely as (A). Received in formalin labelled Foster and B ??appendix is a 5.5 x 0.8 cm vermiform appendix with a linear strip of francine coursing down the side. ??The serosa is light beebe and smooth. ??The proximal resection margin is inked. ??The lumen is up to 0.3 cm in diameter and contains fecal material. ??The 0.2 cm thick wall is firm and intact. ??The appendix is submitted entirely as (B1) through (B4). ??(Agustin Hernandez)/[place] End of Report [facility] 07/31/2006 07/31/2006 9:2 3 EDT us Tom Araujo MD PATHOLOGY ORDERABLES Final Resu lt [facility] [address] [place] [address] documented in this encounter Visit Diagnoses Not on filedocumented in this encounter
--- OUTSIDE RECORDS SUMMARY | 2024-11-07 19:07 | XMS_ITS | Encounter Summary ---
Author Organization [facility] Address [address] [place] [address] Care Team Providers Care Medical Records Tech Name Role Phone Guerita Burt MD Primary Care Provider [phone] Encounter Details Date Type Department Care Team (Late st Contact Info) Description 04/26/2015 Results Only [facility] [phone] Maribell Ordonez MD [address] [facility] [address] [place] [phone] Social History Tobacco Use Types Packs/Day Years [...] Diagnosis Comments PAP TEST- RESULT ONLY Routine 04/26/2015 0:00 EDT documented in this encounter Results * PAP TEST- RESULT ONLY (04/26/2015 0:00 EDT) Pathology Report: CYTOPATHOLOGY REPORT Reports generated via electronic interface contain original data; however they are lacking the format of the original report. Caution should be taken when reading/interpreti ng unformatted reports. Name: ? KHARI CASTANEDAALLYSON Lunsford ? Accession #: ? [id number] ? : ? 1975 (Age: 39) ??F ?Collect Date: ? 04/26/2015 ? Location: ? [facility] ? Receive Date: ? 05/02/2015 ? Provider: MARIBELL PRETTY MD Copy to: ? Final Report SPECIMEN ADEQUACY ? Satisfactory for Evaluation - transformation zone component present GENERAL CATEGORIZATION ? Negative for Intraepithelial Lesion or Malignancy ?? Last Menstrual Period: 04/10/15 Other: Additional clinical information: last pap 08/13/2012 Specimen/Source: ??Pap Test, Cervix, ThinPrep Imaging System with manual evaluation Document reviewed and electronically signed by: ? NEHA De Leon(ASCP) ? Report ??Date: 05/09/2015 15:32 HPV with Pap Test ? Date Ordered: ? 05/09/2015 ? Status: ?? Signed Out ?Date Complete: ? 05/11/2015 ? By: ??System Interface ? Date Reported: ? 05/11/2015 ? Interpretation RESULT: Negative for HPV. No E6 or E7 mRNA is detected from HPV types 16,18,31,33,35, 39,45,51,52,56,58, 59,66, and 68 by inker machine mediated amplification. Comments Document reviewed and electronically signed by: ? System Interface ? Report date: 05/11/2015 By the signature above, the attending physician certifies that he/she has personally conducted a gross and/or microscopic examination of the described specimens and rendered or confirmed the above diagnosis. End of Report [facility] 04/26/2015 05/02/2015 us Maribell Ordonez MD PATHOLOGY ORDERABLES Final Res ult [facility] [address] [place] [address] documented in this encounter Visit Diagnoses Not on filedocumented in this encounter Care Teams Medical Records Tech Relationship Specialty Start Date End Date Guerita Burt MD PCP - General 03/08/15 documented as of this encounter
--- NOTE | 2024-11-07 20:32 | DI.VRAD_ITS ---
PROCEDURE INFORMATION: Exam: XR Right Knee Exam date and time: 11/07/2024 6:37 PM Age: 48 years old Clinical indication: Left; Patient HX: Fall onto kneecaps, pain b/l TECHNIQUE: Imaging protocol: Radiologic exam of the right knee. Views: 4 or more views. COMPARISON: No relevant prior studies available. FINDINGS: Bones/joints: Normal. Soft tissues: Normal. IMPRESSION: No acute findings. Dictated and Authenticated by: Aldo Koehler MD. Ordering:CRISTÓBAL Nielson MD
--- NOTE | 2024-11-07 20:33 | DI.VRAD_ITS ---
PROCEDURE INFORMATION: Exam: XR Right Finger(s) Exam date and time: 11/07/2024 6:43 PM Age: 48 years old Clinical indication: Finger(s); Right; Patient HX: Fall onto hand, R. Index finger pain TECHNIQUE: Imaging protocol: Radiologic exam of the right fingers. Views: Minimum 2 views. COMPARISON: MR upper joint RT wo 12/25/2018 11:40 AM FINDINGS: Bones/joints: Normal. Soft tissues: Normal. IMPRESSION: No acute findings. Dictated and Authenticated by: Aldo Koehler MD. Ordering:CRISTÓBAL Nielson MD
--- NOTE | 2024-11-07 20:33 | DI.VRAD_ITS ---
PROCEDURE INFORMATION: Exam: XR Left Knee Exam date and time: 11/07/2024 6:37 PM Age: 48 years old Clinical indication: Left; Patient HX: Fall onto kneecaps, pain b/l TECHNIQUE: Imaging protocol: Radiologic exam of the left knee. Views: 4 or more views. COMPARISON: No relevant prior studies available. FINDINGS: Bones/joints: Normal. Soft tissues: Normal. IMPRESSION: No acute findings. Dictated and Authenticated by: Aldo Koehler MD. Ordering:CRISTÓBAL Nielson MD
== END 2024-11-07 19:23 | disposition home or self-care (01) ==
PROVIDERS: Emergency Provider Emergency Medicine; PCP Nurse Practitioner Family
DX: S62.650A Nondisplaced fracture of middle phalanx of right index finger, initial encounter for closed fracture (principal); F17.210 Nicotine dependence, cigarettes, uncomplicated; W00.0XXA Fall on same level due to ice and snow, initial encounter; Y93.89 Activity, other specified; Y92.481 Parking lot as the place of occurrence of the external cause
CPT/HCPCS: 99283; 73140; 73564

== ENCOUNTER 2024-11-19 14:40 | Outpatient (CLI) | payer SELFPAY ==
--- NOTE | 2024-11-19 14:00 | DI.RAD_ITS ---
Exam(s) XR HAND RT COMPLETE EXAM: XR HAND RT COMPLETE CLINICAL HISTORY: right hand injury, index finger worse, S69.91XA. TECHNIQUE: 2D digital imaging was performed. Three views. COMPARISON: CR,XR XR FINGER LT INDEX from 09/02/2023 CR,XR XR FINGER RT INDEX from 11/07/2024 FINDINGS: BONES: A small nondisplaced fracture fragment seen from the volar plate of the middle phalanx of the index finger. No additional fractures. No bony destructive lesion is seen. JOINTS: No dislocation present. [id number] degenerative changes of the 1st carpal metacarpal joint. SOFT TISSUE: Swelling around proximal interphalangeal joint. IMPRESSION: Small fracture fragment from the volar plate of the middle phalanx of the index finger. DATA REPOSITORY: RADIATION DOSE DELIVERED:
== END 2024-11-19 15:00 ==
LOC: DI 14:41
PROVIDERS: PCP Nurse Practitioner Family; Visit Provider Nurse Practitioner Family
DX: S62.650A Nondisplaced fracture of middle phalanx of right index finger, initial encounter for closed fracture (principal); X58.XXXA Exposure to other specified factors, initial encounter
CPT/HCPCS: 73130

== ENCOUNTER 2024-12-13 10:57 | Outpatient (CLI) | payer SELFPAY ==
--- NOTE | 2024-12-13 09:00 | DI.RAD_ITS ---
Exam(s) XR FINGER RT INDEX EXAM: XR FINGER RT INDEX CLINICAL HISTORY: r index finger injury. TECHNIQUE: 2D digital imaging was performed of the right finger. Three views were obtained. PA/AP, oblique, and lateral views were obtained. COMPARISON: CR,XR XR FINGER RT INDEX from 11/07/2024 CR XR HAND RT COMPLETE from 11/19/2024 FINDINGS: BONES: The fracture seen at the volar plate of the middle phalanx is not visualized on the current ex amination. No new fracture or dislocation is identified. JOINTS: No dislocation present. SOFT TISSUE: Normal. IMPRESSION: No new fracture or dislocation. DATA REPOSITORY: RADIATION DOSE DELIVERED:
== END 2024-12-13 10:58 | disposition home or self-care (01) ==
LOC: DIORS 10:57
PROVIDERS: PCP Nurse Practitioner Family; Visit Provider Student in an Organized Health Care Education/Training Program
DX: S62.631D Displaced fracture of distal phalanx of left index finger, subsequent encounter for fracture with routine healing (principal); X58.XXXD Exposure to other specified factors, subsequent encounter
CPT/HCPCS: 73140

== ENCOUNTER 2025-01-14 12:28 | Outpatient (CLI) | payer SELFPAY ==
--- NOTE | 2025-01-14 08:30 | DI.RAD_ITS ---
Exam(s) XR FINGER RT INDEX EXAM: XR FINGER RT INDEX CLINICAL HISTORY: F/U R INDEX FINGER FX. TECHNIQUE: 2D digital imaging was performed. Three views. COMPARISON: CR,XR XR FINGER RT INDEX from 11/07/2024 CR XR HAND RT COMPLETE from 11/19/2024 CR XR FINGER RT INDEX from 12/13/2024 FINDINGS: BONES: Tiny fracture from the volar plate which is nondisplaced, unchanged from prior. No bony destr uctive lesion is seen. JOINTS: No dislocation present. SOFT TISSUE: Swelling around PIP joint. IMPRESSION: Stable alignment of volar plate fracture DATA REPOSITORY: RADIATION DOSE DELIVERED:
== END 2025-01-14 12:29 | disposition home or self-care (01) ==
LOC: DIORS 12:29
PROVIDERS: PCP Nurse Practitioner Family; Visit Provider Physician Assistant
DX: S62.631D Displaced fracture of distal phalanx of left index finger, subsequent encounter for fracture with routine healing (principal); X58.XXXD Exposure to other specified factors, subsequent encounter
CPT/HCPCS: 73140

== ENCOUNTER 2025-02-18 08:32 | Outpatient (CLI) | payer SELFPAY ==
--- NOTE | 2025-02-18 07:45 | DI.RAD_ITS ---
Exam(s) XR FINGER RT INDEX EXAM: XR FINGER RT INDEX CLINICAL HISTORY: f/u fracture. TECHNIQUE: 2D digital imaging was performed. COMPARISON: CR XR FINGER RT INDEX from 01/14/2025 FINDINGS: 3 views The volar plate fracture fragment in the proximal aspect of the middle phalanx is again noted and jessica ears unchanged. No thickened displacement. No new fractures identified. There is persistent soft t issue swelling. No radiopaque foreign bodies. IMPRESSION: Radiographically unchanged from 01/14/2025. DATA REPOSITORY: RADIATION DOSE DELIVERED:
== END 2025-02-18 08:33 | disposition home or self-care (01) ==
LOC: DIORS 08:33
PROVIDERS: PCP Nurse Practitioner Family; Visit Provider Physician Assistant
DX: S62.620D Displaced fracture of middle phalanx of right index finger, subsequent encounter for fracture with routine healing (principal)
CPT/HCPCS: 73140

== ENCOUNTER 2025-03-15 00:53 | Outpatient (CLI) | payer SELFPAY ==
--- NOTE | 2025-03-15 13:59 | DI.MRI_ITS ---
Exam(s) MR UPPER EXTREMITY RT WO EXAM: MR UPPER EXTREMITY RT WO CLINICAL HISTORY: evaluate pathology [id number] SPRAIN PIP. TECHNIQUE: Multiplanar multisequence MRI was performed. CONTRAST MATERIAL: IV Contrast: mL of Dotarem contrast administered. COMPARISON: None. FINDINGS: No fracture is visible. The marrow signal is normal. The flexure and extensor tendons appear normal . There is no joint effusion. No focal fluid collection. Mild soft tissue edema around the PIP daniel nt. IMPRESSION: No visible fracture. No tendon abnormality identified. DATA REPOSITORY:
== END 2025-03-15 01:13 ==
LOC: DI 00:55
PROVIDERS: PCP Nurse Practitioner Family; Visit Provider Nurse Practitioner Family
DX: S63.631A Sprain of interphalangeal joint of left index finger, initial encounter (principal); X58.XXXA Exposure to other specified factors, initial encounter
CPT/HCPCS: 73218